=== PATIENT | female | born 1970 | race Caucasian/White ===

== ENCOUNTER 2019-05-04 12:04 | Inpatient (IN) ==
[2019-05-04] MEDS ORDERED: KETOROLAC TROMETHAMINE 15 MG/ML VIAL IV STA (13:03)
[2019-05-04] MEDS ORDERED: SODIUM CHLORIDE 0.9% 1000ML 1,000 ML IV ONE (13:03)
[2019-05-04 13:55] LABS: Basophils # (auto) 0.04 K/uL (0-0.2); Basophils % (auto) 0.5 %; Eosinophils # (auto) 0.18 K/uL (0-0.5); Eosinophils % (auto) 2.3 %; Hematocrit (blood only) 33.3 % (37-47); Immature Granulocytes # (auto) 0.02 K/uL (0.00-0.02); Immature Granulocytes % (auto) 0.3 %; Lymphocytes # (auto) 1.28 K/uL (1.2-3.4); Lymphocytes % (auto) 16.1 %; Mean Corpuscular Hemoglobin 40.1 pg (25-34); Mean Corpuscular Volume 111.4 fL (80-100); Mean Platelet Volume 10.9 fL (7.4-10.4); Monocytes # (auto) 0.86 K/uL (0.11-0.59); Monocytes % (auto) 10.8 %; Neutrophils # (auto) 5.59 K/uL (1.4-6.5); Platelet Count 381 K/uL (130-400); RDW Coefficient of Variation 14.4 % (11.5-14.5); RDW Standard Deviation 58.7 fL (36.4-46.3); Red Blood Count 2.99 M/uL (4.2-5.4); White Blood Count 7.97 K/uL (4.8-10.8)
[2019-05-04 14:12] LABS: Blood Urea Nitrogen 4 mg/dl (7-18); Carbon Dioxide 28 mmol/L (21-32); Chloride 102 mmol/L (98-107); Est GFR (African American) 144.8; Est GFR (Non-African American) 124.9; Sodium 138 mmol/L (136-145)
[2019-05-04 14:13] LABS: Alanine Aminotransferase 16 U/L (12-78); Albumin Level 2.8 gm/dl (3.4-5.0); Aspartate Aminotransferase 14 U/L (15-37); BUN Creatinine Ratio 9.5 (10-20); Bilirubin Direct < 0.1 mg/dl (0-0.2); Calcium 8.8 mg/dl (8.5-10.1); Glucose 91 mg/dl (70-99); Lipase 1160 U/L (73-393)
[2019-05-04 14:15] LABS: Alkaline Phosphatase 67 U/L (45-117); Bilirubin,Total 0.3 mg/dl (0.2-1); Macrocytosis Present; Total Protein 6.3 gm/dl (6.4-8.2)
[2019-05-04] MEDS ORDERED: MoRPHine SULFATE 4 MG/ML 1 ML CARP\\VIAL IV STA (14:46)
[2019-05-04] MEDS ORDERED: ONDANSETRON INJ 2 MG/ML 2 ML VIAL IV STA (14:46)
[2019-05-04] MEDS ORDERED: SODIUM CHLORIDE 0.9% 1000ML 1,000 ML IV SCH (15:00)
[2019-05-04 15:05] LABS: Appearance Urine Clear (Clear); Bacteria Urine Automated Negative (Negative); Bilirubin Urine Negative (Negative); Blood Urine Negative (Negative); Color Urine Yellow; Epithelial Cell Urine Auto >30 /lpf (0-5); Glucose Urine UA Negative (Negative); Ketones Urine 1+ (Negative); Leukocyte Esterase Urine 3+ (Negative); Nitrite Urine Negative (Negative); Protein Urine Negative (Negative); RBC Urine Automated 0-4 /hpf (0-4); Specific Gravity Urine 1.009 (1.000-1.030); Urobilinogen Urine Negative (Negative)
[2019-05-04] MEDS ORDERED: POTASSIUM CHLORIDE 20 MEQ TABCR PO STA (15:55)
[2019-05-04 15:57] LABS: Amphetamines+Metham, Urine Neg (Neg); Barbiturates, Urine Neg (Neg); Benzodiazepine, Urine Neg (Neg); Cocaine, Urine Neg (Neg); MDMA (Ecstacy), Urine Neg (Neg); Methadone, Urine Neg (Neg); Opiate, Urine Neg (Neg); Phencyclidine, Urine Neg (Neg)
--- NOTE | 2019-05-04 15:59 | History & Physical Report ---
Date of Service May 04, 2019 Assessment & Plan (1) Peripheral neuropathy: This is a 48-year-old female with a PMH of GERD, depression, anxiety, PTSD, tobacco use disorder, history of alcohol use disorder, marijuana use and other medical problems listed below who presents with ongoing bilateral lower extremity numbness and abdominal pain. -History of paresthesias in right toes back during Mansi time that is progressed up her legs to waist. Now also with tingling in bilateral hands and around mouth -Has been undergoing outpatient work-up for peripheral neuropathy and is already had an EMG but has not followed up with neurology as of yet, per [facility] discharge summary. Will need to clarify further with patient -TSH within normal range at 2.43 on 04/18/19 and B12 level was within normal range at 317 on 05/02/19. Folate level ordered for morning -No focal neurological deficits on exam. Both motor and sensory function intact bilaterally -Recommend alcohol cessation due to history of heavy use. Patient states last use was 04/13/19. Serum etoh negative -Endorses poor nutrition and eats a vegetarian and gluten free diet. Consult dietitian for recommendations -Fall precautions (2) Acute pancreatitis: Recently diagnosed with acute pancreatitis at [facility] on 04/29 -CT abd/pelvis from 04/29/19 with findings consistent with acute interstitial pancreatitis. No pancreatic necrosis or pseudocyst. No calcified gallstone, biliary duct dilatation or CT finding to suggest acute cholecystitis -RUQ ultrasound with heterogeneous pancreatic echotexture with indistinctness of the focal areas of pancreatic borders suggesting acute pancreatitis. Nonspecific small amount of pericholecystic fluid,no evidence for gallstone/sludge -IV LR @ 150, clear liquid diet, advance as tolerated -Recommendation was made for alcohol and marijuana cessation, but patient still using daily marijuana. Plan for outpatient EUS evaluation in 4 to 6 weeks - Repeat lipase tomorrow (3) GERD (gastroesophageal reflux disease): Continue PPI and H2 hanny (4) Tobacco use disorder: Recommend cessation -Offered nicotine patch but patient declined (5) Depression: Continue BuSpar (6) Post traumatic stress disorder (PTSD): Recently stopped taking Geodon because she did not like side effects -Continue Klonopin as needed, Ambien at bedtime DVT Ppx: SQ lovenox Code status: FULL PCP: [facility] ([facility] in [place]) Dispo: Obs med tele Patient seen in collaboration with Dr. Beltran. Please see addendum. History of Present Illness Chief Complaint: Bilateral lower extremity numbness and pain, abdominal pain Primary Care Provider: Kerry Moya MD This is a 48-year-old female with a PMH of GERD, depression, anxiety, PTSD, tobacco use disorder, history of alcohol use disorder, marijuana use and other medical problems listed below who presents with ongoing bilateral lower extremity numbness. States that she first noted some numbness and tingling in her right toes back during Mansi time that is progressed up her legs to waist. States that she feels weak but has been able to ambulate with some assistance. Feels like her lower limbs are heavy with intermittent shooting pain. Has been undergoing outpatient work-up for peripheral neuropathy and is already had an EMG but has not followed up with neurology as of yet, per chart review. Will need to clarify further with patient. TSH within normal range at 2.43 on 04/18/19 and B12 level was within normal range at 317 on 05/02/19. Endorses poor nutrition and eats a vegetarian and gluten free diet. Also presenting with mild left sided abdominal pain that has persisted since the beginning of the week, when patient was admitted to [facility] 04/29-05/02 for acute pancreatitis. Denies associated nausea or vomiting. History of significant alcohol use but states that last drink was at the beginning of April. CT abd/pelvis from 04/29/19 with findings consistent with acute interstitial pancreatitis. No pancreatic necrosis or pseudocyst. No calcified gallstone, biliary duct dilatation or CT finding to suggest acute cholecystitis. RUQ ultrasound with heterogeneous pancreatic echotexture with indistinctness of the focal areas of pancreatic borders suggesting acute pancreatitis. Nonspecific small amount of pericholecystic fluid with no evidence for gallstone/sludge. Recommendation was made for alcohol and marijuana cessation, but patient still using daily marijuana. Plan for EUS evaluation in 4 to 6 weeks. Smokes 1 pack/day for the past 20 years. Additional symptoms include intermittent flashes of light that is been going on for months. During [facility] hospitalization, outpatient evaluation with ophthalmology was recommended and patient has appointment scheduled for May 08. Also endorsing numbness of lips and chin since the beginning of April. Denies any difficulty speaking or swallowing. Denies any lightheadedness, diplopia, fever, chills, chest pain, palpitations, shortness of breath, nausea, vomiting, dysuria, diarrhea or constipation. Allergies Allergy/AdvReac Type Severity Reaction Status Date / Time No Known Allergies Allergy Unverified 05/04/19 13:57 Home Medications Home Medications Medication Instructions Recorded Confirmed Type buspirone 10 mg PO TID 05/04/19 05/04/19 History clonazepam [Klonopin] 0.5 mg PO QID PRN 05/04/19 05/04/19 History dicyclomine 10 mg PO DAILY 05/04/19 05/04/19 History famotidine [Pepcid] 40 mg PO DAILY 05/04/19 05/04/19 History fluticasone propionate 2 spray INTRANASAL DAILY 05/04/19 05/04/19 History gabapentin 300 mg PO TID 05/04/19 05/04/19 History melatonin [Melatin] 3 mg PO HS 05/04/19 05/04/19 History omeprazole 40 mg PO DAILY 05/04/19 05/04/19 History zolpidem [Ambien] 10 mg PO HS 05/04/19 05/04/19 History Past Med/Surg History Surgical History S/P removal of ovarian cyst Family History Other Diabetes Social History Feels Safe at Home: Yes Smoking Status: Current every day smoker packs per day: 1 ; Years Smoked: 20 ; Hx Alcohol Use: Yes (history of heavy use- reports last drink on 04/13/19 ) Hx Substance Use: Yes (endorses smoking marijuana daily ) substance use type: marijuana Review of Systems Review of Systems: At least ten systems reviewed and negative except as noted in the HPI. Physical Exam Physical Exam: General Appearance: WD/WN, vitals as above, NAD, sitting up in bed, pleasant, conversing easily Head: normocephalic, atraumatic Eyes: normal inspection, PERRL, conjunctivae normal, anicteric sclerae ENT: external ear and nose normal, oropharynx normal Neck: trachea midline, no thyromegaly, normal visual inspection Respiratory: lungs clear to auscultation, no wheeze, rales, rhonchi. Normal insp/exp effort, no accessory muscle use Cardiovascular: regular rate, rhythm, no murmur, normal peripheral pulses. Vessels: no JVD Chest: normal inspection of chest Abdomen/GI: normal bowel sounds, soft, TTP in LLQ, no guarding, no hepatosplenomegaly Extremities/Musculoskeletal: no cyanosis or clubbing, extremities motor strength 5/5, sensation intact bilaterally Neurologic: PERRL, EOMI, accommodation nl, no face palsy, no dysarthria, CN's II-XI intact bilaterally and moves all extremities Psychiatric: A+Ox3, + anxious Skin: no rashes, normal color, warm/dry Results & Data Vital Signs (Past 12 Hours) Vital Signs Temp Pulse Pulse Resp BP BP Pulse Ox 05/04/19 14:04 73 16 114/80 98 05/04/19 12:06 36.6 C 95 H 18 124/82 98 Supervising Physician Co-Signing Physician Notes 48-year-old female with a PMH of GERD, depression, anxiety, PTSD, tobacco use disorder, history of alcohol use disorder, marijuana use and other medical problems listed below who presents with ongoing bilateral lower extremity numbness. Was recently discharged from [facility] for acute pancreatitis and lower extremity numbness. History and physical exam performed by me Detailed history as noted by Ryanne Palencia PA-C History significant for bilateral lower extremity and hand numbness, lip numbness and upper abdominal pain, marijuana use, alcohol use Physical exam notable for upper abdominal tenderness, no focal deficits on neurologic exam both sensory and power assessment. Lipase is 1160 K 3 UDS positive for marijuana Acute pancreatitis Get Abd USS Review B12 from [facility]- 317 Planned for EMG and follow up with neurology Get A1c Counselled extensively on alcohol and marijuana use Reports poor diet. Get dietitian recs Replete K Continue IVF LR for now Can start clears and advance as tolerated Supposed to follow up with GI outpatient from [facility] discharge Other plans as above (1) Acute pancreatitis Acute pancreatitis complication: unspecified Pancreatitis type: unspecified pancreatitis type Qualified Code(s): K85.90 - Acute pancreatitis without necrosis or infection, unspecified
[2019-05-04] MEDS: LACTATED RINGER'S 1,000 ML IV SCH ×2 (16:24→22:55)
[2019-05-04] MEDS ORDERED: KETOROLAC TROMETHAMINE 15 MG/ML VIAL IV PRN (18:06)
[2019-05-04] MEDS ORDERED: OXYCODONE HCL IR 5 MG TAB (IMMEDIATE RELEASE) PO PRN (18:06)
--- NOTE | 2019-05-04 18:08 | Ultrasound Report ---
ULTRASOUND RIGHT UPPER QUADRANT ABDOMEN CLINICAL HISTORY: Pancreatitis. COMPARISON STUDY: No priors. TECHNIQUE: Real-time, grayscale, and color flow sonography of the right upper quadrant of the abdomen was performed. Images are reviewed in the transverse and longitudinal planes. FINDINGS: Liver: The liver is normal in size and echotexture. There is no intrahepatic biliary ductal dilatatio n. The main portal vein is patent. Gallbladder: There is minimal biliary sludge. The gallbladder is otherwise normal in appearance. No s hadowing gallstones are identified. There is no gallbladder wall thickening or pericholecystic fluid. A sonographic Gonzáles's sign is reportedly absent. The common bile duct measures up to 0.5 cm in diam eter. Pancreas: Visualized portions of the pancreatic head and body appear heterogeneous in echotexture. Th e splenic vein is patent. Right kidney: Survey images of the right kidney demonstrate normal size and echotexture. There is no hydronephrosis. Pleural space: There is a trace right pleural effusion. Ascites: None. IMPRESSION: 1. There is biliary sludge. No shadowing gallstones are identified. 2. The pancreas is heterogeneous in echotexture. 3. Trace right pleural effusion. ACT 112: Negative or not required by law. Electronically signed by: Jairo Ferguson M.D. 05/04/2019 6:06 PM
[2019-05-04] MEDS ORDERED: POLYETHYLENE (MIRALAX) 17 GM PACK PO PRN (18:41)
[2019-05-04] MEDS ORDERED: ONDANSETRON INJ 2 MG/ML 2 ML VIAL IV PRN (18:41)
--- NOTE | 2019-05-04 19:23 | Emergency Department Note ---
Entered by Aristides Carranza acting as a scribe for Blayne Molina History of Present Illness General Chief complaint: Leg Weakness, Bilateral Stated complaint: LEGS NUMB, CAN'T WALK Time Seen by Provider: 05/04/19 12:58 Source: patient History of Present Illness Onset (ago): month(s) 1 Location: lower extremity, left and right Pain Consistency: + constant Maximum Pain Intensity: 10 Quality: + other (numbness) Associated symptoms: + denies other symptoms (difficulty urinating, blood in her urine, the chance of , and urinating herself) and + other (numbness to her lips and mouth, abdominal pain) The patient is a 48 y/o female who presents to the ED w/ CC of constant numbness to her bilateral legs beginning a month ago. She reports her symptoms started on 04/02 when she had three numb toes. The patient states she was discharged from [facility] two days ago for similar symptoms. She reports since then her numbness has worsened, and it is very difficulty to walk. The patient notes she is also having extreme pain. She states she went to her PCP today and was told her B12 lab result was wnl. The patient reports she did not complete her scheduled EGD yesterday because she is waiting to hear back from Dr. Juarez, Neurology. She notes her lips and chin are numb as well as her hands. The patient states she also has abdominal pain. Abdominal pain is located in the epigastric area and radiates to her mid back. The patient states she has not been drinking alcohol since discharge. She denies difficulty urinating, blood in her urine, melena, hematochezia, the chance of , and urinating herself. Home Medications Home Medications Medication Instructions Recorded Confirmed Type buspirone 10 mg PO TID 05/04/19 05/04/19 History clonazepam [Klonopin] 0.5 mg PO QID PRN 05/04/19 05/04/19 History dicyclomine 10 mg PO DAILY 05/04/19 05/04/19 History famotidine [Pepcid] 40 mg PO DAILY 05/04/19 05/04/19 History fluticasone propionate 2 spray INTRANASAL DAILY 05/04/19 05/04/19 History gabapentin 300 mg PO TID 05/04/19 05/04/19 History melatonin [Melatin] 3 mg PO HS 05/04/19 05/04/19 History omeprazole 40 mg PO DAILY 05/04/19 05/04/19 History zolpidem [Ambien] 10 mg PO HS 05/04/19 05/04/19 History Allergies Allergy/AdvReac Type Severity Reaction Status Date / Time No Known Allergies Allergy Unverified 05/04/19 13:57 Past Med/Surg History Surgical History S/P removal of ovarian cyst Family History Other Diabetes Social History Feels Safe at Home: Yes Smoking Status: Current every day smoker packs per day: 1 ; Years Smoked: 20 ; Hx Alcohol Use: Yes (history of heavy use- reports last drink on 04/13/19 ) Hx Substance Use: Yes (endorses smoking marijuana daily ) substance use type: marijuana Review of Systems See HPI for pertinent positives & negatives. and A total of 10 systems reviewed and were otherwise negative Physical Exam Vital Signs Vital Signs - 24 hr 05/04/19 12:06 05/04/19 14:04 05/04/19 16:18 Temperature 36.6 C Temperature Source Oral Pulse Rate 95 H Pulse Rate [Finger] 73 77 Respiratory Rate 18 16 16 Respiratory Effort / Characteristics Non-Labored Non-Labored Spontaneous Non-Labored Spontaneous Respiratory Depth Normal Normal Normal Respiratory Pattern Regular Regular Blood Pressure 124/82 Blood Pressure [Right Arm] 114/80 126/89 Blood Pressure Mean 96 Blood Pressure Mean [Right Arm] 91 101 Blood Pressure Position Sitting Blood Pressure Position [Right Arm] Sitting Lying Pulse Oximetry 98 98 97 Oxygen Delivery Method Room Air Room Air Room Air Sepsis Recent Fever Within 48 Hours No Sepsis Action Taken by Nursing No Action Required GENERAL: She is oriented to person, place, and time. She appears well-developed and well-nourished. She does not appear distressed. HENT: Exam performed. Head: Normocephalic and atraumatic. Right Ear: External ear normal. No mastoid tenderness. Left Ear: External ear normal. No mastoid tenderness. Mouth/Throat: The oropharynx is clear and moist. No trismus in the jaw. No dental abscesses or uvula swelling. No oropharyngeal exudate or tonsillar abscesses. EYES: Conjunctivae and EOM are normal. Pupils are equal, round, and reactive to light. Right eye exhibits no discharge. Left eye exhibits no discharge. No scleral icterus. NECK: Normal range of motion. Neck supple. No JVD present. No spinous process tenderness present. No carotid bruit present. No rigidity. No tracheal deviation and normal range of motion present. No Brudzinski's sign and no Kernig's sign noted. CV: Normal rate, regular rhythm, normal heart sounds and intact distal pulses. There is no peripheral edema. Palpable radial pulses bue. PULM/CHEST: Effort normal and breath sounds normal. No respiratory distress. No stridor. She has no wheezes. She has no rales. Chest Wall: She exhibits no tenderness. ABD: The abdomen is soft. Bowel sounds are normal. She has no distension. No mass is present. There is tenderness to the epigastric area. There is no rebound, no guarding, no Gonzáles's sign and no tenderness at McBurney's point. Rovsig negative MUSC/SKEL: Normal range of motion. There is no peripheral edema, tenderness or deformity. No C, T, or L-spine tenderness. LYMPH: No cervical adenopathy. NEURO: She is alert and oriented to person, place, and time. She has normal strength. No cranial nerve deficit or sensory deficit. Coordination and gait normal. GCS eye subscore is 4. GCS verbal subscore is 5. GCS motor subscore is 6. cerbellar tests wnl. No saddle anesthesia or paresthesias. SKIN: Skin is warm and dry. She is not diaphoretic. PSYCH: She has a bizarre mood and affect. Her behavior is normal. Judgment and thought content normal. Course Course 1307: The patient was evaluated in room A11A. A complete history and physical exam was performed. The patient's EMR was accessed by [facility] Case management. The patient was admitted to [facility] from 04/29/19 to 05/02/19 for pancreatitis, depression, and PTSD. According to the H&P, the patient had bilateral lower extremity swelling for two months and has been worked up for peripheral neuropathy. She was supposed to follow-up with neurology. The patient had a RUQ ultrasound that was negative and a lipase greater than 3000 on May 01. She has a history of alcohol abuse. Her lipase was 116 at the time of discharge. The patient was scheduled to have a EMG done yesterday however the patient did not appear for the appointment. 1445: Vital signs stable. Labs are positive for an elevated lipase, 1160. Potassium is also 3.0. It appears that the patient is suffering from acute pancreatitis. I reviewed the patient's case with TIFFANIE Diaz, [facility], attending Dr. Roberts. She will evaluate the patient for further management. Patient be continued given analgesia in the emergency department as well as IV hydration. Administered Medications Lactated Ringer's (Lr) 1,000 mls @ 150 mls/hr IV .Q6H40M [facility] Stop: 06/03/19 15:59 Last Admin: 05/04/19 16:24 Dose: 150 mls/hr Documented by: [id number] Oxycodone HCl (Roxicodone Immediate Rel) 5 mg PO Q8H PRN PRN Reason: Pain Stop: 05/18/19 18:05 Last Admin: 05/04/19 19:17 Dose: 5 mg Documented by: [id number] Discontinued Medications Sodium Chloride (Nss 1000ml) 1,000 mls @ 999 mls/hr IV .Q1H1M ONE Stop: 05/04/19 14:03 Last Infusion: 05/04/19 14:50 Dose: 0 mls/hr Documented by: [id number] Admin: 05/04/19 13:45 Dose: 999 mls/hr Documented by: [id number] Sodium Chloride (Nss 1000ml) 1,000 mls @ 125 mls/hr IV .Q8H [facility] Stop: 06/03/19 14:59 Last Infusion: 05/04/19 16:24 Dose: 0 mls/hr Documented by: [id number] Admin: 05/04/19 15:22 Dose: 125 mls/hr Documented by: [id number] Ketorolac Tromethamine (Toradol) 15 mg IV NOW STA Stop: 05/04/19 13:04 Last Admin: 05/04/19 13:48 Dose: 15 mg Documented by: [id number] Morphine Sulfate (Morphine Sulfate) 4 mg IV NOW STA Stop: 01/24/20 14:47 Last Admin: 05/04/19 15:22 Dose: 4 mg Documented by: [id number] Ondansetron HCl (Zofran) 4 mg IV NOW STA Stop: 05/04/19 14:47 Last Admin: 05/04/19 15:22 Dose: 4 mg Documented by: [id number] Potassium Chloride (Klor-Con M20) 40 meq PO NOW STA Stop: 05/04/19 15:56 Last Admin: 05/04/19 16:24 Dose: 40 meq Documented by: [id number] Medical Decision Making Medical Records Attestation: I reviewed the patient's medical records. Home Medications Current Medication List: was personally reviewed by me Laboratory Data Attestation: I reviewed the patient's lab results. Result diagrams: 05/04/19 13:45 05/04/19 13:45 Lab Results 05/04/19 05/04/19 05/04/19 Range/Units 13:45 13:45 14:40 WBC 7.97 (4.8-10.8) K/uL RBC 2.99 L (4.2-5.4) M/uL Hgb 12.0 (12.0-16.0) g/dL Hct 33.3 L (37-47) % MCV 111.4 H (80-100) fL MCH 40.1 H (25-34) pg MCHC 36.0 (32-36) g/dL RDW Std Deviation 58.7 H (36.4-46.3) fL RDW Coeff of Jane 14.4 (11.5-14.5) % Plt Count 381 (130-400) K/uL MPV 10.9 H (7.4-10.4) fL Immature Gran % (Auto) 0.3 % Neut % (Auto) 70.0 % Lymph % (Auto) 16.1 % Ward % (Auto) 10.8 % Eos % (Auto) 2.3 % Baso % (Auto) 0.5 % Immature Gran # (Auto) 0.02 (0.00-0.02) K/uL Neut # (Auto) 5.59 (1.4-6.5) K/uL Lymph # (Auto) 1.28 (1.2-3.4) K/uL Ward # (Auto) 0.86 H (0.11-0.59) K/uL Eos # (Auto) 0.18 (0-0.5) K/uL Baso # (Auto) 0.04 (0-0.2) K/uL Macrocytosis Present Sodium 138 (136-145) mmol/L Potassium 3.0 L (3.5-5.1) mmol/L Chloride 102 (98-107) mmol/L Carbon Dioxide 28 (21-32) mmol/L Anion Gap 8.0 (3-11) BUN 4 L (7-18) mg/dl Creatinine 0.40 L (0.6-1.2) mg/dl Est Cr Clr Drug Dosing Not Reportable Est GFR ( Amer) 144.8 Est GFR (Non-Af Amer) 124.9 BUN/Creatinine Ratio 9.5 L (10-20) Glucose 91 (70-99) mg/dl Calcium 8.8 (8.5-10.1) mg/dl Total Bilirubin 0.3 (0.2-1) mg/dl Direct Bilirubin < 0.1 (0-0.2) mg/dl AST 14 L (15-37) U/L ALT 16 (12-78) U/L Alkaline Phosphatase 67 (45-117) U/L Total Protein 6.3 L (6.4-8.2) gm/dl Albumin 2.8 L (3.4-5.0) gm/dl Lipase 1160 H (73-393) U/L Folate Urine Color Yellow Urine Appearance Clear (Clear) Urine pH 8.0 H (4.5-7.5) Ur Specific [place] 1.009 (1.000-1.030) Urine Protein Negative (Negative) Urine Glucose (UA) Negative (Negative) Urine Ketones 1+ H (Negative) Urine Blood Negative (Negative) Urine Nitrite Negative (Negative) Urine Bilirubin Negative (Negative) Urine Urobilinogen Negative (Negative) Ur Leukocyte Esterase 3+ H (Negative) Urine WBC (Auto) 10-30 H (0-5) /hpf Urine RBC (Auto) 0-4 (0-4) /hpf U Hyaline Cast (Auto) 1-5 (0-5) /lpf U Epithel Cells (Auto) >30 H (0-5) /lpf Urine Bacteria (Auto) Negative (Negative) POC Ur Test (NEG) Urine Opiates Screen (Neg) Ur Methadone, Qual (Neg) Urine Barbiturates (Neg) Ur Phencyclidine (PCP) (Neg) U Amphetamin/Meth Scrn (Neg) MDMA (Ecstasy) Screen (Neg) U Benzodiazepines Scrn (Neg) Ur Cocaine Metabolite (Neg) U Marijuana (THC) Screen (Neg) Ethyl Alcohol mg/dL (0-3) mg/dl 05/04/19 05/04/19 05/04/19 Range/Units 14:40 14:40 15:05 WBC (4.8-10.8) K/uL RBC (4.2-5.4) M/uL Hgb (12.0-16.0) g/dL Hct (37-47) % MCV (80-100) fL MCH (25-34) pg MCHC (32-36) g/dL RDW Std Deviation (36.4-46.3) fL RDW Coeff of Jane (11.5-14.5) % Plt Count (130-400) K/uL MPV (7.4-10.4) fL Immature Gran % (Auto) % Neut % (Auto) % Lymph % (Auto) % Ward % (Auto) % Eos % (Auto) % Baso % (Auto) % Immature Gran # (Auto) (0.00-0.02) K/uL Neut # (Auto) (1.4-6.5) K/uL Lymph # (Auto) (1.2-3.4) K/uL Ward # (Auto) (0.11-0.59) K/uL Eos # (Auto) (0-0.5) K/uL Baso # (Auto) (0-0.2) K/uL Macrocytosis Sodium (136-145) mmol/L Potassium (3.5-5.1) mmol/L Chloride (98-107) mmol/L Carbon Dioxide (21-32) mmol/L Anion Gap (3-11) BUN (7-18) mg/dl Creatinine (0.6-1.2) mg/dl Est Cr Clr Drug Dosing Est GFR ( Amer) Est GFR (Non-Af Amer) BUN/Creatinine Ratio (10-20) Glucose (70-99) mg/dl Calcium (8.5-10.1) mg/dl Total Bilirubin (0.2-1) mg/dl Direct Bilirubin (0-0.2) mg/dl AST (15-37) U/L ALT (12-78) U/L Alkaline Phosphatase (45-117) U/L Total Protein (6.4-8.2) gm/dl Albumin (3.4-5.0) gm/dl Lipase (73-393) U/L Folate Urine Color Urine Appearance (Clear) Urine pH (4.5-7.5) Ur Specific Salem (1.000-1.030) Urine Protein (Negative) Urine Glucose (UA) (Negative) Urine Ketones (Negative) Urine Blood (Negative) Urine Nitrite (Negative) Urine Bilirubin (Negative) Urine Urobilinogen (Negative) Ur Leukocyte Esterase (Negative) Urine WBC (Auto) (0-5) /hpf Urine RBC (Auto) (0-4) /hpf U Hyaline Cast (Auto) (0-5) /lpf U Epithel Cells (Auto) (0-5) /lpf Urine Bacteria (Auto) (Negative) POC Ur Test NEG (NEG) Urine Opiates Screen Neg (Neg) Ur Methadone, Qual Neg (Neg) Urine Barbiturates Neg (Neg) Ur Phencyclidine (PCP) Neg (Neg) U Amphetamin/Meth Scrn Neg (Neg) MDMA (Ecstasy) Screen Neg (Neg) U Benzodiazepines Scrn Neg (Neg) Ur Cocaine Metabolite Neg (Neg) U Marijuana (THC) Screen Pos H (Neg) Ethyl Alcohol mg/dL < 3.0 (0-3) mg/dl 05/04/19 Range/Units 16:07 WBC (4.8-10.8) K/uL RBC (4.2-5.4) M/uL Hgb (12.0-16.0) g/dL Hct (37-47) % MCV (80-100) fL MCH (25-34) pg MCHC (32-36) g/dL RDW Std Deviation (36.4-46.3) fL RDW Coeff of Jane (11.5-14.5) % Plt Count (130-400) K/uL MPV (7.4-10.4) fL Immature Gran % (Auto) % Neut % (Auto) % Lymph % (Auto) % Ward % (Auto) % Eos % (Auto) % Baso % (Auto) % Immature Gran # (Auto) (0.00-0.02) K/uL Neut # (Auto) (1.4-6.5) K/uL Lymph # (Auto) (1.2-3.4) K/uL Ward # (Auto) (0.11-0.59) K/uL Eos # (Auto) (0-0.5) K/uL Baso # (Auto) (0-0.2) K/uL Macrocytosis Sodium (136-145) mmol/L Potassium (3.5-5.1) mmol/L Chloride (98-107) mmol/L Carbon Dioxide (21-32) mmol/L Anion Gap (3-11) BUN (7-18) mg/dl Creatinine (0.6-1.2) mg/dl Est Cr Clr Drug Dosing Est GFR ( Amer) Est GFR (Non-Af Amer) BUN/Creatinine Ratio (10-20) Glucose (70-99) mg/dl Calcium (8.5-10.1) mg/dl Total Bilirubin (0.2-1) mg/dl Direct Bilirubin (0-0.2) mg/dl AST (15-37) U/L ALT (12-78) U/L Alkaline Phosphatase (45-117) U/L Total Protein (6.4-8.2) gm/dl Albumin (3.4-5.0) gm/dl Lipase (73-393) U/L Folate Cancelled Urine Color Urine Appearance (Clear) Urine pH (4.5-7.5) Ur Specific [place] (1.000-1.030) Urine Protein (Negative) Urine Glucose (UA) (Negative) Urine Ketones (Negative) Urine Blood (Negative) Urine Nitrite (Negative) Urine Bilirubin (Negative) Urine Urobilinogen (Negative) Ur Leukocyte Esterase (Negative) Urine WBC (Auto) (0-5) /hpf Urine RBC (Auto) (0-4) /hpf U Hyaline Cast (Auto) (0-5) /lpf U Epithel Cells (Auto) (0-5) /lpf Urine Bacteria (Auto) (Negative) POC Ur Test (NEG) Urine Opiates Screen (Neg) Ur Methadone, Qual (Neg) Urine Barbiturates (Neg) Ur Phencyclidine (PCP) (Neg) U Amphetamin/Meth Scrn (Neg) MDMA (Ecstasy) Screen (Neg) U Benzodiazepines Scrn (Neg) Ur Cocaine Metabolite (Neg) U Marijuana (THC) Screen (Neg) Ethyl Alcohol mg/dL (0-3) mg/dl Blood Pressure Blood Pressure Findings: Normal blood pressure Blood Pressure Disposition: did not require urgent referral [facility] Narrative 1307: The patient was evaluated in room A11A. A complete history and physical exam was performed. The patient's EMR was accessed by [facility] Case management. The patient was admitted to [facility] from 04/29/19 to 05/02/19 for pancreatitis, depression, and PTSD. According to the H&P, the patient had bilateral lower extremity swelling for two months and has been worked up for peripheral neuropathy. She was supposed to follow-up with neurology. The patient had a RUQ ultrasound that was negative and a lipase greater than 3000 on May 01. She has a history of alcohol abuse. Her lipase was 116 at the time of discharge. The patient was scheduled to have a EMG done yesterday however the p atient did not appear for the appointment. 1445: Vital signs stable. Labs are positive for an elevated lipase, 1160. Potassium is also 3.0. It appears that the patient is suffering from acute panc reatitis. I reviewed the patient's case with TIFFANIE Diaz, [facility] Hospitalist, attending Dr. Roberts. She will evaluate the patient for further management. Patient be continued given analgesia in the emergency department as well as IV hydration. Impression & Plan Acute pancreatitis Discharge Plan Visit Data *Final* Discharge Date/Time: 05/04/19 18:14 Chief Complaint: Leg Weakness, Bilateral Stated Complaint: LEGS NUMB, CAN'T WALK ED Provider: Blayne Molina Discharge Problem: Acute pancreatitis Patient Disposition: Admitted As Inpatient Discharge Instructions Interventions: ED Discharge Assessment Last Done: 05/04/19 18:14 Discharge Problem: Acute pancreatitis Qualifiers: Pancreatitis type: unspecified pancreatitis type Acute pancreatitis complication: unspecified Qualified Code(s): K85.90 - Acute pancreatitis without necrosis or infection, unspecified The scribe's documentation has been prepared under my direction and personally reviewed by me in its entirety. I confirm that the note above accurately reflects all work, treatment, procedures, and medical decision making performed by me.
[2019-05-04] MEDS: clonazePAM 0.5 MG TAB PO PRN (21:56)
[2019-05-04] MEDS: HYDROmorphone INJ 0.5 MG/0.5 ML SYR IV PRN (22:01)
[2019-05-04] MEDS: ZOLPIDEM TARTRATE 10 MG TAB PO SCH (22:56)
[2019-05-05] MEDS: HYDROmorphone INJ 0.5 MG/0.5 ML SYR IV PRN ×6 (02:00→23:45)
[2019-05-05] MEDS: LACTATED RINGER'S 1,000 ML IV SCH ×3 (06:12→20:00)
[2019-05-05 06:43] LABS: Hematocrit (blood only) 29.5 % (37-47); Hemoglobin 10.3 g/dL (12.0-16.0); Mean Corpuscular Hemoglobin 39.2 pg (25-34); Mean Corpuscular Hgb Conc 34.9 g/dL (32-36); Mean Corpuscular Volume 112.2 fL (80-100); Mean Platelet Volume 10.4 fL (7.4-10.4); Platelet Count 319 K/uL (130-400); RDW Coefficient of Variation 14.5 % (11.5-14.5); RDW Standard Deviation 58.8 fL (36.4-46.3); Red Blood Count 2.63 M/uL (4.2-5.4); White Blood Count 6.84 K/uL (4.8-10.8)
[2019-05-05 07:24] LABS: Blood Urea Nitrogen 2 mg/dl (7-18); Calcium 7.9 mg/dl (8.5-10.1); Carbon Dioxide 27 mmol/L (21-32); Chloride 104 mmol/L (98-107); Creatinine Clr Calc Pharmacy 244.9 ml/min; Est GFR (African American) > 150.0; Est GFR (Non-African American) 137.3; Glucose 80 mg/dl (70-99); Lipase 849 U/L (73-393); Sodium 138 mmol/L (136-145)
[2019-05-05 08:04] LABS: Estimated Average Glucose 80 mg/dl; Hemoglobin A1C 4.4 % (4.5-5.6)
[2019-05-05] MEDS: clonazePAM 0.5 MG TAB PO PRN ×3 (08:36→21:24)
[2019-05-05] MEDS: PANTOprazole 40 MG TAB PO SCH (08:36)
[2019-05-05] MEDS: DICYCLOMINE HCL 10 MG CAP PO SCH (08:37)
[2019-05-05] MEDS: FAMOTIDINE 40 MG TABLET PO SCH (08:37)
[2019-05-05] MEDS: ENOXAPARIN INJ 40 MG/0.4 ML SYR SQ SCH (08:38)
[2019-05-05] MEDS: FLUTICASONE PROPIONATE NA SPR 16 GM BTL NAE SCH (08:38)
--- NOTE | 2019-05-05 16:50 | Hospitalist Progress Note ---
Date of Service May 05, 2019 Assessment & Plan (1) Acute pancreatitis: Had recent imaging at [facility]. Outpatient EUS recommended. Now with recurrence. Patient states that last drink was > 2 weeks ago. Gallbladder US now shows sludge. Continue IV fluids. Analgesics / anti-emetics PRN. Advance diet as tolerated. (2) GERD (gastroesophageal reflux disease): Continue PPI. (3) Lower extremity weakness: Lower extremity weakness and paresthesiae- consider spinal cord pathology, neuropathy. Also has neck pain and upper extremity weakness. Was advised to get imaging of spine YINKA. Check MRI cervical / thoracic / lumbar spine. (4) Hypokalemia: K 3.0. Replace, follow. Check Mg. (5) History of alcohol use: Pt reports heavy consumption of alcohol in past, none since 04/13/19. Monitor for withdrawal symptoms. Thiamine, MVI. (6) Macrocytosis: MCV 112. LFT's OK despite history of alcoholism. Check B12, folate, TSH. (7) DVT prophylaxis: SQ enoxaparin. Ambulate. (8) Discharge planning issues: Discharge disposition to be determined. Medical follow-up with Dr. Moya in [place]. Subjective Recheck for multiple problems. Patient seen in their room around . Admitted yesterday with pancreatitis and weakness of upper and lower extremities. Abdominal pain improved. No N/V. Having loose stools. No melena or hematochezia. Ongoing weakness / paresthesiae of bilat lower extremities and weakness of both upper extremities. Has chronic neck pain. Sounds like she had recent EMG/NCV and was told to get imaging of her spine YINKA. Pt states that her last alcohol consumption was 04/13/19. Review of Systems: Constitutional- no fever. Cardiac- no chest pain. Pulmonary- no cough or SOB. GI- as noted above. - no urinary symptoms. Otherwise, as noted above. Physical Exam Constitutional: no acute distress Eyes: + anicteric sclerae Respiratory: no respiratory distress Auscultation: lungs clear to auscultation bilaterally Cardiovascular: Rate/Rhythm: regular rate and regular rhythm Heart Sounds: + gallop Vessels: no JVD Extremities: no calf tenderness and no edema Gastrointestinal (Abdomen): Inspection/Auscultation: normal bowel sounds; abdomen not distended Percussion/Palpation: + abdomen tender (mild epigastric ) and abdomen soft Musculoskeletal: Extremities: no cyanosis Skin: no rashes, warm and dry Neurologic: upper extremity strength 4.5/5 proximally and distally lower extremity strength 4.5/5 proximally and distally patellar reflexes 1/2 bilat plantar reflexes downgoing Psychiatric: Orientation: alert and oriented x 3 Results & Data Vital Signs (Past 12 Hours) Vital Signs Temp Pulse Pulse Pulse Resp BP Pulse Ox 05/05/19 15:13 36.9 C 79 18 118/84 98 05/05/19 12:38 36.7 C 87 18 128/87 96 05/05/19 07:25 88 05/05/19 07:24 37 C 78 20 129/85 91 Laboratory Results Laboratory Results - last 24 hr 05/05/19 05/05/19 05/05/19 06:30 06:30 06:30 WBC 6.84 RBC 2.63 L Hgb 10.3 L Hct 29.5 L MCV 112.2 H MCH 39.2 H MCHC 34.9 RDW Std Deviation 58.8 H RDW Coeff of Jane 14.5 Plt Count 319 MPV 10.4 Sodium 138 Potassium 3.0 L Chloride 104 Carbon Dioxide 27 Anion Gap 7.0 BUN 2 L Creatinine 0.30 L Est Cr Clr Drug Dosing 244.9 Est GFR ( Amer) > 150.0 Est GFR (Non-Af Amer) 137.3 BUN/Creatinine Ratio 7.0 L Glucose 80 Estimat Average Glucose Hemoglobin A1c Calcium 7.9 L Lipase 849 H Folate 2.05 L 05/05/19 06:30 WBC RBC Hgb Hct MCV MCH MCHC RDW Std Deviation RDW Coeff of Jane Plt Count MPV Sodium Potassium Chloride Carbon Dioxide Anion Gap BUN Creatinine Est Cr Clr Drug Dosing Est GFR ( Amer) Est GFR (Non-Af Amer) BUN/Creatinine Ratio Glucose Estimat Average Glucose 80 Hemoglobin A1c 4.4 L Calcium Lipase Folate (1) Acute pancreatitis Acute pancreatitis complication: unspecified Pancreatitis type: unspecified pancreatitis type Qualified Code(s): K85.90 - Acute pancreatitis without necrosis or infection, unspecified
[2019-05-05 21:41] LABS: Cdiff Antigen Positive; Cdiff Toxin A+B Negative Cdiff Toxin (Negative)
[2019-05-05] MEDS: ZOLPIDEM TARTRATE 10 MG TAB PO SCH (23:16)
[2019-05-06] MEDS: LACTATED RINGER'S 1,000 ML IV SCH ×2 (02:30→08:16)
[2019-05-06] MEDS: HYDROmorphone INJ 0.5 MG/0.5 ML SYR IV PRN ×3 (03:51→12:23)
[2019-05-06] MEDS: clonazePAM 0.5 MG TAB PO PRN ×3 (03:52→23:32)
[2019-05-06] MEDS: RASPBERRY SYRUP 5 ML UDP PO SCH ×4 (06:12→23:32)
[2019-05-06] MEDS: VANCOMYCIN HCL 125 MG/2.5ML SOLN PO SCH ×4 (06:13→23:32)
[2019-05-06 06:23] LABS: Hematocrit (blood only) 31.1 % (37-47); Hemoglobin 10.9 g/dL (12.0-16.0); Mean Corpuscular Hemoglobin 39.6 pg (25-34); Mean Corpuscular Volume 113.1 fL (80-100); Mean Platelet Volume 10.5 fL (7.4-10.4); Platelet Count 364 K/uL (130-400); RDW Coefficient of Variation 14.4 % (11.5-14.5); RDW Standard Deviation 59.4 fL (36.4-46.3); Red Blood Count 2.75 M/uL (4.2-5.4); White Blood Count 6.29 K/uL (4.8-10.8)
[2019-05-06 06:56] LABS: BUN Creatinine Ratio 4.5 (10-20); Blood Urea Nitrogen 1 mg/dl (7-18); Calcium 8.6 mg/dl (8.5-10.1); Carbon Dioxide 28 mmol/L (21-32); Chloride 105 mmol/L (98-107); Creatinine Clr Calc Pharmacy 229.6 ml/min; Est GFR (African American) > 150.0; Est GFR (Non-African American) 134.4; Glucose 84 mg/dl (70-99); Lipase 740 U/L (73-393); Magnesium 1.4 mg/dl (1.8-2.4); Potassium 3.2 mmol/L (3.5-5.1); Sodium 138 mmol/L (136-145)
[2019-05-06] MEDS ORDERED: LORazepam 0.5 MG/1 ML VIAL IV ONE (08:00)
[2019-05-06] MEDS: DICYCLOMINE HCL 10 MG CAP PO SCH (08:16)
[2019-05-06] MEDS: ENOXAPARIN INJ 40 MG/0.4 ML SYR SQ SCH (08:16)
[2019-05-06] MEDS: FAMOTIDINE 40 MG TABLET PO SCH (08:16)
[2019-05-06] MEDS: PANTOprazole 40 MG TAB PO SCH (08:16)
[2019-05-06] MEDS: FLUTICASONE PROPIONATE NA SPR 16 GM BTL NAE SCH (08:18)
--- NOTE | 2019-05-06 11:26 | Magnetic Resonance Report ---
MR lumbar spine wo con CLINICAL HISTORY: 48 years-old Female with weakness and paresthesiae lower extremities. Subacute num bness and tingling of the right lower extremity for several months. COMPARISON: MRI thoracic and cervical spine studies of same day TECHNIQUE: Multiplanar, multi sequence MRI of the lumbar spine was performed without intravenous cont rast. FINDINGS: Large [id number] endoscopy localizer images demonstrate no gross extraspinal abnormality. There is mil d levoscoliosis of the lumbar spine of less than 10 degrees. Nonspecific superficial subcutaneous yon ma/fluid extension T12-L5. Minimal likely degenerative endplate edema at L5-S1 suggestive of Modic ty pe I degeneration. Minimal edema of the left L4 and L5 pedicles is suggestive of associated stress re sponse. Mild edema also surrounds the left L4-L5 facet. No acute fracture or subluxation. Disc desicc ation is noted at L4-L5 and L5-S1. Conus medullaris terminates at the L1 level. Signal within the jaspreet ged thoracic spinal cord appears normal. T12-L1: No central canal or neural foraminal stenosis. L1-L2: Mild facet arthrosis. No central canal or neural foraminal stenosis. L2-L3: Mild facet arthrosis. No central canal or neural foraminal stenosis. L3-L4: Mild facet arthrosis. No central canal or neural foraminal stenosis. L4-L5: Mild disc space narrowing with disc desiccation and small circumferential annular disc bulge. Small annular fissure of the right foraminal distribution (image 7 series 4). Additionally, there is mild ligamentum flavum thickening with moderate facet arthrosis and trace left facet effusion. Marva ening of the ventral thecal sac without significant central canal stenosis. Mild narrowing of the rig ht lateral recess with mild inferior right foraminal stenosis. L5-S1: Mild disc space narrowing with spondylitic spurring, disc desiccation and small circumferenti al annular disc bulge. Ligamentum flavum thickening with mild facet arthrosis and trace facet effusio ns. Flattening of the ventral thecal sac with mild inferior right foraminal narrowing. The central ca nal and left foramen are patent. IMPRESSION: 1. No acute fracture or subluxation. 2. Discogenic degeneration and facet arthrosis at L4-L5 and L5-S1 as above. 3. Mild bone marrow edema involving the left L4 and L5 pedicles suggests stress response. Mild soft t issue edema surrounding the left L4-L5 facet is likely reactive secondary to associated degeneration. 4. No high-grade central canal or foraminal narrowing. ACT 112: Negative or not required by law. The above report was generated using voice recognition software. It may contain grammatical, syntax o r spelling errors. Electronically signed by: Trav Butterfield M.D. 05/06/2019 11:25 AM
[2019-05-06] MEDS: MAGNESIUM CHLORIDE 64MG DELAYED REL TAB PO SCH ×2 (11:37→22:26)
[2019-05-06] MEDS: POTASSIUM CHLORIDE 10 MEQ TABCR PO SCH ×3 (11:37→20:36)
[2019-05-06] MEDS: POTASSIUM CHLORIDE 20 MEQ, MAGNESIUM SULFATE 50% 1 GM in D5W AND 1/2NSS 1,000 ML IV SCH ×2 (11:37→21:48)
--- NOTE | 2019-05-06 11:43 | Magnetic Resonance Report ---
MR thoracic spine wo con HISTORY: 48 years-old Female weakness and paresthesiae lower extremities subacute numbness and tingl ing of the right lower extremity COMPARISON: MRI the lumbar spine of same day TECHNIQUE: Multiplanar multisequence MRI of the thoracic spine was obtained without the use of IV con trast. FINDINGS: The large [id number] plastering contractor localizer images demonstrate no gross extraspinal abnormality. Trace la yering bilateral pleural effusions, left greater than right. Levoscoliosis of the midthoracic spine o f approximately 21 degrees. No acute fracture, subluxation or bone marrow edema. Signal within the th oracic spinal cord appears normal. Conus medullaris terminates at L1. No significant disc space narro wing. Mild facet arthrosis with minimal spondylitic spurring. There is no significant central canal o r foraminal narrowing. There is mild left-sided foraminal narrowing at T1-T2 and T2-T3 with associate d spondylitic spurring and facet arthrosis. Tiny posterior annular disc bulge at T9-T10. IMPRESSION: 1. Levoscoliosis of the midthoracic spine. No acute fracture, subluxation, significant central canal or foraminal narrowing. 2. Incidental note is made of trace pleural effusions. ACT 112: Negative or not required by law. The above report was generated using voice recognition software. It may contain grammatical, syntax o r spelling errors. Electronically signed by: Trav Butterfield M.D. 05/06/2019 11:41 AM
--- NOTE | 2019-05-06 12:04 | Magnetic Resonance Report ---
MR cervical spine wo con HISTORY: 48 years-old Female neck pain, weakness of upper and lower extremities subacute neck pain w ith upper and lower extremity weakness COMPARISON: MRI thoracic and lumbar spine studies of same day TECHNIQUE: Multiplanar multisequence MRI of the cervical spine was obtained without the use of IV con trast. FINDINGS: Telemedicine Physician localizer images demonstrate no gross extracranial abnormality. Convex right curvature of the m id cervical spine with partially imaged convex left curvature of the thoracic spine. The imaged poste rior fossa structures appear unremarkable. No cerebellar tonsillar herniation. No acute fracture or s ubluxation of the cervical spine. Signal within the brainstem and cervical spinal cord appear normal. No cord lesions identified. Modic type II endplate degeneration noted at C5-C6 and C6-C7. C2-C3: Mild facet arthrosis. No central canal or foraminal narrowing. C3-C4: Mild facet arthrosis. No central canal or foraminal narrowing. C4-C5: Mild uncovertebral spurring with mild facet arthrosis and tiny posterior annular disc bulge. N o central canal or foraminal narrowing. C5-C6: Mild to moderate disc space narrowing with spondylitic spurring, circumferential annular disc bulge and mild facet arthrosis. Flattening of the ventral thecal sac with mild narrowing of the left lateral recess. Moderate left and mild right foraminal narrowing. C6-C7: Mild to moderate disc space narrowing with spondylitic spurring, circumferential annular disc bulge and mild facet arthrosis with central disc osteophyte complex. Flattening of the ventral thecal sac with mild central canal narrowing. Mild narrowing of the lateral recesses. Mild right and mild-t o-moderate left foraminal narrowing. C7-T1: Mild facet arthrosis with uncovertebral spurring. Central disc osteophyte complex flattens the ventral thecal sac. No central canal or right foraminal narrowing. Moderate left foraminal stenosis. IMPRESSION: 1. Cervical dextroscoliosis and thoracic levoscoliosis. 2. Discogenic degenerative changes and facet arthrosis as above, most pronounced at C5-C6 and C6-C7. 3. No high-grade central canal or foraminal narrowing. 4. Normal signal of the cervical spinal cord. ACT 112: Negative or not required by law. The above report was generated using voice recognition software. It may contain grammatical, syntax o r spelling errors. Electronically signed by: Trav Butterfield M.D. 05/06/2019 12:03 PM
--- NOTE | 2019-05-06 15:31 | Hospitalist Progress Note ---
Date of Service May 06, 2019 Assessment & Plan (1) Acute pancreatitis: Had recent imaging at [facility]. Outpatient EUS recommended. Now with recurrence. Patient states that last drink was > 2 weeks ago. Gallbladder US now shows sludge. Continue IV fluids. Analgesics / anti-emetics PRN. Advance diet as tolerated. (2) GERD (gastroesophageal reflux disease): Continue PPI. (3) Lower extremity weakness: Lower extremity weakness and paresthesiae- consider spinal cord pathology, neuropathy. Also has neck pain and upper extremity weakness. Was advised to get imaging of spine YINKA. MR imaging of the cervical/thoracic/lumbar spine performed this morning and demonstrated some degenerative disc disease, levoscoliosis, no high-grade central canal or foraminal narrowing. May have neuropathy from alcoholism or other etiologies. Electrolyte abnormalities and vitamin deficiencies may be contributing factors. PT/OT evaluations. Consult Neurology. (4) Hypokalemia: K 3.0. Replace. K today = 3.2. Follow. (5) Hypomagnesemia: Serum magnesium 1.4. Replace. Follow. (6) Macrocytosis: MCV 112. LFT's OK despite history of alcoholism. Folate 2.05. Vitamin B12 level 315. TSH normal. (7) Folic acid deficiency: Serum folate level = 2. Oral replacement. (8) Vitamin D deficiency: 25-OH vitamin D level 10. Start replacement with vitamin D 50,000 units weekly x4 weeks followed by 2000 units daily. (9) Malnutrition: Patient states that her weight fluctuates. She has evidence of electrolyte and vitamin deficiencies as noted above. Consult Nutrition. (10) History of alcohol use: Pt reports heavy consumption of alcohol in past, none since 04/13/19. Monitor for withdrawal symptoms. Thiamine, MVI. (11) DVT prophylaxis: SQ enoxaparin. Ambulate. (12) Discharge planning issues: Discharge disposition to be determined. Medical follow-up with Dr. Moya in [place]. Subjective Recheck for multiple problems. Patient seen in their room around 1050. Still having epigastric abdominal pain; analgesics help. No nausea or vomiting. Loose stools without melena or hematochezia. Ongoing weakness of upper and lower extremities. Review of Systems: Constitutional- no fever. Cardiac- no chest pain. Pulmonary- no cough or SOB. GI- as noted above. - no urinary symptoms. Otherwise, as noted above. Physical Exam Constitutional: no acute distress Eyes: + anicteric sclerae Respiratory: no respiratory distress Auscultation: lungs clear to auscultation bilaterally Cardiovascular: Rate/Rhythm: regular rate and regular rhythm Heart Sounds: no gallop Vessels: no JVD Extremities: no calf tenderness and no edema Gastrointestinal (Abdomen): Inspection/Auscultation: normal bowel sounds; abdomen not distended Percussion/Palpation: + abdomen tender (mild epigastric) and abdomen soft Musculoskeletal: Extremities: no cyanosis Skin: no rashes, warm and dry Psychiatric: Orientation: alert and oriented x 3 Results & Data Vital Signs (Past 12 Hours) Vital Signs Temp Pulse Pulse Pulse Resp BP BP 05/06/19 15:08 98 H 05/06/19 15:03 36.6 C 85 18 135/89 05/06/19 09:00 90 05/06/19 08:31 36.3 C L 98 H 18 129/92 05/06/19 04:30 84 05/06/19 03:48 36.6 C 97 H 18 142/94 H Pulse Ox 05/06/19 15:08 05/06/19 15:03 97 05/06/19 09:00 05/06/19 08:31 97 05/06/19 04:30 05/06/19 03:48 100 Laboratory Results Laboratory Results - last 24 hr 05/05/19 05/06/19 05/06/19 19:35 06:04 06:04 WBC 6.29 RBC 2.75 L Hgb 10.9 L Hct 31.1 L MCV 113.1 H MCH 39.6 H MCHC 35.0 RDW Std Deviation 59.4 H RDW Coeff of Jane 14.4 Plt Count 364 MPV 10.5 H Sodium Potassium Chloride Carbon Dioxide Anion Gap BUN Creatinine Est Cr Clr Drug Dosing Est GFR ( Amer) Est GFR (Non-Af Amer) BUN/Creatinine Ratio Glucose Calcium Magnesium Lipase Vitamin B1 Pending Vitamin B6 Pending Vitamin B12 25-OH Vitamin D Total TSH Stool Fat Screen Cancelled Stl C. diff Tox B Gene Positive Cdiff Gene H Stl C.difficile Tox A&B Negative Cdiff Toxin 05/06/19 05/06/19 05/06/19 06:04 06:04 06:04 WBC RBC Hgb Hct MCV MCH MCHC RDW Std Deviation RDW Coeff of Jane Plt Count MPV Sodium 138 Potassium 3.2 L Chloride 105 Carbon Dioxide 28 Anion Gap 5.0 BUN 1 L Creatinine 0.32 L Est Cr Clr Drug Dosing 229.6 Est GFR ( Amer) > 150.0 Est GFR (Non-Af Amer) 134.4 BUN/Creatinine Ratio 4.5 L Glucose 84 Calcium 8.6 Magnesium 1.4 L Lipase 740 H Vitamin B1 Vitamin B6 Vitamin B12 315 25-OH Vitamin D Total 10.0 L TSH 2.200 Stool Fat Screen Stl C. diff Tox B Gene Stl C.difficile Tox A&B (1) Acute pancreatitis Acute pancreatitis complication: unspecified Pancreatitis type: unspecified pancreatitis type Qualified Code(s): K85.90 - Acute pancreatitis without necrosis or infection, unspecified
[2019-05-06] MEDS ORDERED: TRAMADOL HCL 50 MG TABLET PO PRN (15:37)
[2019-05-06] MEDS ORDERED: KETOROLAC TROMETHAMINE 15 MG/ML VIAL IV PRN (15:38)
[2019-05-06] MEDS ORDERED: ERGOCALCIFEROL 50,000 UNITS CAP PO SCH (15:45)
[2019-05-06] MEDS: FOLIC ACID 1 MG TAB PO SCH (17:06)
[2019-05-06] MEDS: THIAMINE HCL 100 MG TAB PO SCH (17:06)
[2019-05-06] MEDS: VITAMIN B COMPLEX TAB PO SCH (17:06)
[2019-05-06] MEDS: ACETAMINOPHEN 325 MG TAB PO PRN (19:59)
[2019-05-06] MEDS: ZOLPIDEM TARTRATE 10 MG TAB PO SCH (22:26)
[2019-05-07 00:01] LABS: Marijuana Quant, GCMS Urine 1260 ng/mL (<5)
[2019-05-07] MEDS: ACETAMINOPHEN 325 MG TAB PO PRN ×4 (01:21→16:58)
[2019-05-07] MEDS: RASPBERRY SYRUP 5 ML UDP PO SCH ×4 (05:54→23:40)
[2019-05-07] MEDS: VANCOMYCIN HCL 125 MG/2.5ML SOLN PO SCH ×4 (05:54→23:40)
[2019-05-07] MEDS: clonazePAM 0.5 MG TAB PO PRN ×4 (05:57→23:42)
[2019-05-07] MEDS: POTASSIUM CHLORIDE 20 MEQ, MAGNESIUM SULFATE 50% 1 GM in D5W AND 1/2NSS 1,000 ML IV SCH ×2 (07:52→17:58)
[2019-05-07 08:50] LABS: BUN Creatinine Ratio 2.7 (10-20); Calcium 8.5 mg/dl (8.5-10.1); Est GFR (African American) 140.3; Est GFR (Non-African American) 121.1; Magnesium 2.1 mg/dl (1.8-2.4); Potassium 3.7 mmol/L (3.5-5.1)
[2019-05-07] MEDS: THIAMINE HCL 100 MG TAB PO SCH (09:03)
[2019-05-07] MEDS: MAGNESIUM CHLORIDE 64MG DELAYED REL TAB PO SCH ×2 (09:03→20:56)
[2019-05-07] MEDS: FOLIC ACID 1 MG TAB PO SCH (09:03)
[2019-05-07] MEDS: PANTOprazole 40 MG TAB PO SCH (09:03)
[2019-05-07] MEDS: VITAMIN B COMPLEX TAB PO SCH (09:04)
[2019-05-07] MEDS: DICYCLOMINE HCL 10 MG CAP PO SCH (09:04)
[2019-05-07] MEDS: POTASSIUM CHLORIDE 10 MEQ TABCR PO SCH ×4 (09:04→20:56)
[2019-05-07] MEDS: FAMOTIDINE 40 MG TABLET PO SCH (09:04)
[2019-05-07] MEDS: ENOXAPARIN INJ 40 MG/0.4 ML SYR SQ SCH (09:06)
[2019-05-07] MEDS: FLUTICASONE PROPIONATE NA SPR 16 GM BTL NAE SCH (09:07)
--- NOTE | 2019-05-07 13:52 | Neurology Consultation ---
Date of Consultation May 07, 2019 Assessment & Plan (1) Peripheral neuropathy: 1. MRI c/t/l spine no canal narrowing degenerative changes 2. PT/OT for discharge needs 3. EMG- done as outpatient no record in [facility] system- Dr Christianson in [place]- need records may need to repeat 4. discussed smoking cessation and continue EtOH cessation 5. B12- 315 is low for age- would replace 6. thiamine current 100 mg daily 7. c diff + defer to primary team for treatment 8. medical management by primary team neurology follow up in 4-6 weeks [facility] schedule (2) Vitamin D deficiency: (3) Folic acid deficiency: (4) Malnutrition: Supervising Physician Co-Signing Physician Notes A 48 year old woman with alcohol use disorder and acute pancreatitis admitted for paresthesias and numbness in hands and feet. Patient notes poor PO intake and recently stopped alcohol intake. Multiple metabollic abnormalities noted on serum labs including hypokalemia, hypomagnesia, folate deficiecy, and low B12. Patient also noted she does not eat meat and is a vegetarian. On examine no muscle weakness noted. She is able to stand from bed with arms crossed. Gait is wide based. Difficulty with standing with feat together and eyes closed. Position sense is intact. Knee jerks are 2+ with jendrassik maneuver. Jara negative. No clonus. 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 Recommend starting B-complex vitamin as well as thiamine tablet daily. Would recommend nutrition consultation. PT for discharge recommendations. Recommend outpatient EMG. Please call me with any further questions or concerns. History of Present Illness Reason for Consultation: paresthesia and ataxia Requesting Physician: Donal Miller MD Attending Physician: Donal Miller MD History of Present Illness Cortez is a 48 year old female with PMH - GERD, depression, anxiety, PTSD, tobacco use disorder, history of alcohol use disorder, marijuana. She presented to the [facility] ED for evaluation of paresthesias B/L LE. The numbness and tingling started in her right toes back during Mansi time and has asceneded up to her waist. She was seen by neurology in [place] for an outpatient work- up for peripheral neuropathy and is already had an EMG which she is unsure of the results but Dr Christianson did tell her she should proceed to the ED. She has a poor diet vegetarian and vegan. She also had mild left sided abdominal pain that has persisted since the beginning of the week and was admitted to [facility] 04/29-05/02 for acute pancreatitis. She states she was a heavy drinker of EtOH (vodka) several glasses per day but quit at the beginning of April with no withdrawal symptoms. CT abd/pelvis from 04/29/19 with findings consistent with acute interstitial pancreatitis. She also admits to using marijuana, and smokes 1 pack/day for the past 20 years. She is also complaining of lip and chin numbness which started at the beginning of April. she has also had multiple falls, but states she has been clumpy all her life. denies CP, SOB, abdominal pain, vision changes, swallowing difficulty, N, V, new bowel or bladder issues. Allergies Allergy/AdvReac Type Severity Reaction Status Date / Time gluten Allergy Verified 05/06/19 16:17 caffeine AdvReac Verified 05/06/19 16:17 Home Medications Home Medications Medication Instructions Recorded Confirmed Type buspirone 10 mg PO TID 05/04/19 05/04/19 History clonazepam [Klonopin] 0.5 mg PO QID PRN 05/04/19 05/04/19 History dicyclomine 10 mg PO DAILY 05/04/19 05/04/19 History famotidine [Pepcid] 40 mg PO DAILY 05/04/19 05/04/19 History fluticasone propionate 2 spray INTRANASAL DAILY 05/04/19 05/04/19 History gabapentin 300 mg PO TID 05/04/19 05/04/19 History melatonin [Melatin] 3 mg PO HS 05/04/19 05/04/19 History omeprazole 40 mg PO DAILY 05/04/19 05/04/19 History zolpidem [Ambien] 10 mg PO HS 05/04/19 05/04/19 History Patient History Surgical History S/P removal of ovarian cyst Family History Other Diabetes Social History Preferred Language: Citizen Of [place] Communication Ability: Effective Ortho Rn Required: No Beliefs That Will Affect Care: None Current Living Situation: Significant Other Feels Safe at Home: Yes Smoking Status: Current every day smoker Tobacco Type: cigarettes ; packs per day: 1 ; Years Smoked: 20 ; Cigarettes Per Day: 20 ; Do You Dip or Chew Tobacco: No ; Hx Alcohol Use: No (quit apr 13.) Hx Substance Use: No Physical Exam Physical Exam: Physical Exam: Constitutional: appearance thin pale Ears, Nose, Mouth and Throat: mucous membranes moist, no injection and skin normal, eyes normal Cardiovascular: normal S-1 and S-2 and regular rate and rhythm Respiratory: course breath sounds with wheezing Musculoskeletal: poor muscle tone Skin: no stigmata of neurocutaneous disease noted and normal and intact Eyes: extraocular muscles intact (EOMI) and pupils equal, round and reactive to light (PERRL) NEUROLOGIC EXAMINATION: Mental status: Alert and interactive Oriented to full date and location Oriented to person Speech fluent with no evidence of aphasia Cranial Nerves smile symmetric tongue midline Reflexes: Deep tendon reflexes were symmetrical decrease UE, LE, no ankle jerk no clonus Sensory: decreased sensation to vibration, cool touch to knees Coordination: Romberg absent Gait/Stance: Posture normal. Gait unable to walk straight line, wide gait Motor: Negative for pronator drift of out stretched arms with eyes closed. Strength: hand senior office assistant biceps triceps intrinsics bilaterally 5/5, hip flex plantar flex ext 5/5 Results & Data Vital Signs (Past 12 Hours) Vital Signs Temp Pulse Resp BP Pulse Ox 05/07/19 07:00 36.7 C 78 18 122/74 94 Laboratory Results Abnormal lab results 05/04/19 05/07/19 Range/Units 14:40 07:57 Chloride 110 H (98-107) mmol/L BUN 1 L (7-18) mg/dl Creatinine 0.44 L (0.6-1.2) mg/dl BUN/Creatinine Ratio 2.7 L (10-20) Glucose 103 H (70-99) mg/dl U Marijuana THC Carboxy 1260 H (<5) ng/mL Diagnostic Findings liver UE-There is biliary sludge. No shadowing gallstones are identified. The pancreas is heterogeneous in echotexture. Trace right pleural effusion. MRI c spine-Cervical dextroscoliosis and thoracic levoscoliosis. 2. Discogenic degenerative changes and facet arthrosis as above, most pronounced at C5-C6 and C6-C7. No high-grade central canal or foraminal narrowing. Normal signal of the cervical spinal cord. MRI T spine- Levoscoliosis of the midthoracic spine. No acute fracture, subluxation, significant central canal or foraminal narrowing. Incidental note is made of trace pleural effusions. MRI L spine-No acute fracture or subluxation. Discogenic degeneration and facet arthrosis at L4-L5 and L5-S1 as above. Mild bone marrow edema involving the left L4 and L5 pedicles suggests stress response. Mild soft tissue edema surrounding the left L4-L5 facet is likely reactive secondary to associated degeneration. No high-grade central canal or foraminal narrowing.
[2019-05-07] MEDS ORDERED: Nursing to Pharmacy Communication ONE (19:53)
--- NOTE | 2019-05-07 20:25 | Hospitalist Progress Note ---
Date of Service May 07, 2019 Assessment & Plan (1) Acute pancreatitis: Had recent imaging and GI consult at [facility]. Outpatient EUS recommended. Presented with recurrent abdominal pain. Patient states that last drink was > 2 weeks ago. Gallbladder US showed sludge. Received IV fluids, analgesics, anti-emetics PRN. Advance diet as tolerated. (2) GERD (gastroesophageal reflux disease): Continue PPI. (3) Lower extremity weakness: Lower extremity weakness and paresthesiae- consider spinal cord pathology, neuropathy. Also has neck pain and upper extremity weakness. Was advised to get imaging of spine YINKA. MR imaging of the cervical/thoracic/lumbar spine performed this morning and demonstrated some degenerative disc disease, levoscoliosis, no high-grade central canal or foraminal narrowing. May have neuropathy from alcoholism or other etiologies. Electrolyte abnormalities and vitamin deficiencies may be contributing factors. PT/OT evaluations. Consult Neurology. (4) Hypokalemia: K as low as 3.0. Receiving replacement. K today = 3.7. Follow. (5) Hypomagnesemia: Serum magnesium as low as 1.4. Receiving replacement. Mg today = 2.1. Follow. (6) Macrocytosis: MCV 112. LFT's OK despite history of alcoholism. Folate 2.05. Vitamin B12 level 315. TSH normal. (7) Folic acid deficiency: Serum folate level = 2. Oral replacement. (8) Vitamin D deficiency: 25-OH vitamin D level 10. Start replacement with vitamin D 50,000 units weekly x4 weeks followed by 2000 units daily. (9) Malnutrition: Patient states that her weight fluctuates. She has evidence of electrolyte and vitamin deficiencies as noted above. Consult Nutrition. (10) History of alcohol use: Pt reports heavy consumption of alcohol in past, none since 04/13/19. Monitor for withdrawal symptoms. Thiamine, MVI. (11) DVT prophylaxis: SQ enoxaparin. Ambulate. (12) Discharge planning issues: Discharge disposition to be determined. Medical follow-up with Dr. Moya in [place]. Subjective Recheck for multiple problems. Patient seen in their room around 0940 with assistance of Retail Team Leader. Abdominal pain improved. Tolerating diet. No nausea or vomiting. Loose stools without melena or hematochezia, improved. Ongoing weakness of upper and lower extremities. Review of Systems: Constitutional- no fever. Cardiac- no chest pain. Pulmonary- no cough or SOB. GI- as noted above. - no urinary symptoms. Otherwise, as noted above. Physical Exam Constitutional: no acute distress Eyes: + anicteric sclerae Respiratory: no respiratory distress Auscultation: lungs clear to auscultation bilaterally Cardiovascular: Rate/Rhythm: regular rate and regular rhythm Heart Sounds: no gallop Vessels: no JVD Extremities: no calf tenderness and no edema Gastrointestinal (Abdomen): Inspection/Auscultation: normal bowel sounds; abdomen not distended Percussion/Palpation: + abdomen tender (mild epigastric) and abdomen soft Musculoskeletal: Extremities: no cyanosis Skin: no rashes, warm and dry Psychiatric: Orientation: alert and oriented x 3 Results & Data Vital Signs (Past 12 Hours) Vital Signs Temp Pulse Resp BP Pulse Ox 05/07/19 15:00 36.6 C 78 20 129/81 94 Laboratory Results Laboratory Results - last 24 hr 05/04/19 05/07/19 05/07/19 14:40 07:29 07:57 Sodium 142 Potassium 3.7 D Chloride 110 H Carbon Dioxide 23 Anion Gap 9.0 BUN 1 L Creatinine 0.44 L Est Cr Clr Drug Dosing 167.0 Est GFR ( Amer) 140.3 Est GFR (Non-Af Amer) 121.1 BUN/Creatinine Ratio 2.7 L Glucose 103 H Calcium 8.5 Magnesium 2.1 Total Creatine Kinase Stool Fat Screen Pending U Marijuana THC Carboxy 1260 H Drug Screen Comment SEE NOTE 05/07/19 07:57 Sodium Potassium Chloride Carbon Dioxide Anion Gap BUN Creatinine Est Cr Clr Drug Dosing Est GFR ( Amer) Est GFR (Non-Af Amer) BUN/Creatinine Ratio Glucose Calcium Magnesium Total Creatine Kinase 42 Stool Fat Screen U Marijuana THC Carboxy Drug Screen Comment (1) Acute pancreatitis Acute pancreatitis complication: unspecified Pancreatitis type: unspecified pancreatitis type Qualified Code(s): K85.90 - Acute pancreatitis without necrosis or infection, unspecified
[2019-05-07] MEDS: GABAPENTIN 100 MG CAP PO SCH (20:56)
[2019-05-07] MEDS: ZOLPIDEM TARTRATE 10 MG TAB PO SCH (21:59)
[2019-05-08] MEDS: ACETAMINOPHEN 325 MG TAB PO PRN ×5 (03:24→21:59)
[2019-05-08] MEDS: VANCOMYCIN HCL 125 MG/2.5ML SOLN PO SCH ×3 (06:03→18:17)
[2019-05-08] MEDS: RASPBERRY SYRUP 5 ML UDP PO SCH ×3 (06:03→18:17)
[2019-05-08] MEDS: clonazePAM 0.5 MG TAB PO PRN ×3 (06:07→18:17)
[2019-05-08 07:04] LABS: BUN Creatinine Ratio 4.8 (10-20); Calcium 8.8 mg/dl (8.5-10.1); Creatinine Clr Calc Pharmacy 159.7 ml/min; Est GFR (African American) 138.3; Est GFR (Non-African American) 119.3; Magnesium 2.3 mg/dl (1.8-2.4); Potassium 4.4 mmol/L (3.5-5.1)
[2019-05-08] MEDS: DICYCLOMINE HCL 10 MG CAP PO SCH (08:52)
[2019-05-08] MEDS: FLUTICASONE PROPIONATE NA SPR 16 GM BTL NAE SCH (08:53)
[2019-05-08] MEDS: ENOXAPARIN INJ 40 MG/0.4 ML SYR SQ SCH (08:54)
[2019-05-08] MEDS: POTASSIUM CHLORIDE 10 MEQ TABCR PO SCH ×4 (08:54→22:02)
[2019-05-08] MEDS: FOLIC ACID 1 MG TAB PO SCH (08:54)
[2019-05-08] MEDS: GABAPENTIN 100 MG CAP PO SCH ×2 (08:55→21:59)
[2019-05-08] MEDS: FAMOTIDINE 40 MG TABLET PO SCH (08:55)
[2019-05-08] MEDS: CYANOCOBALAMIN 500 MCG TABLET (VITAMIN B-12) PO SCH (08:56)
[2019-05-08] MEDS: VITAMIN B COMPLEX TAB PO SCH (08:56)
[2019-05-08] MEDS: THIAMINE HCL 100 MG TAB PO SCH (08:56)
[2019-05-08] MEDS: MAGNESIUM CHLORIDE 64MG DELAYED REL TAB PO SCH ×2 (08:56→21:59)
[2019-05-08] MEDS: PANTOprazole 40 MG TAB PO SCH (08:56)
--- NOTE | 2019-05-08 11:09 | Communication Note ---
Date of Service: May 08, 2019 I was asked by Dr. Miller to talk with this pt about her request to move up post acute pancreatitis EUS. Reviewed EPIC records: hospitalized at [facility] 04/29- for an initial episode of acute pancreatitis CT suggested acute pancreatitis w/o cysts or necrosis, lipase there>3000->116. Thought secondary to hx of increased ETOH intake though has abstained since 04/11/19. Pain recurred and admitted here on 05/04. Here US with gallbladder sludge and lipase 1160->40. LFTs normal. I spoke with Dr. Miller, the pt and [facility] schedulers. I explained that the purpose of the EUS is to evaluate the stricture of the pancreas and r/o small pancreases masses. This procedures needs to be completed after the acute inflammation has resolved, as acute inflammation obscures the view of pancreas structure and masses. Because our [facility] schedulers have not been able to reach the pt thus far, I called our schedulers from the pt's room and an appt for EUS with Dr. Morrissey at [facility] was scheduled for 06/05/19. Pt agrees to this plan. Additionally, because US here at [facility] suggests gallbladder sludge, I recommend surgery consult (Dr. Miller will discuss with pt and consider).
--- NOTE | 2019-05-08 21:24 | Hospitalist Progress Note ---
Date of Service May 08, 2019 Assessment & Plan (1) Acute pancreatitis: Had recent imaging and GI consult at [facility]. CT of abdomen and pelvis demonstrated acute pancreatitis, no cholelithiasis. US demonstrated hepatic steatosis, no biliary calculi. Outpatient EUS recommended in about 6 weeks- scheduled for 06/05/19. Presented with recurrent abdominal pain. Patient states that last drink was > 2 weeks ago. Gallbladder US showed sludge. Received IV fluids, analgesics, anti-emetics PRN. Advance diet as tolerated. Consult General Surgery re: gallbladder findings. (2) GERD (gastroesophageal reflux disease): Continue PPI. (3) Lower extremity weakness: Lower extremity weakness and paresthesiae- consider spinal cord pathology, neuropathy. Also has neck pain and upper extremity weakness. Was advised to get imaging of spine YINKA. MR imaging of the cervical/thoracic/lumbar spine performed this morning and demonstrated some degenerative disc disease, levoscoliosis, no high-grade central canal or foraminal narrowing. May have neuropathy from alcoholism or other etiologies. Electrolyte abnormalities and vitamin deficiencies may be contributing factors. PT/OT evaluations. Neurology consulted. Try to get results of EMG/NCV from [place]. Started on gabapentin for neuropathic pain; titrate as necessary. (4) Hypokalemia: K as low as 3.0. Receiving replacement. K today = 4.4. Follow. (5) Hypomagnesemia: Serum magnesium as low as 1.4. Receiving replacement. Mg today = 2.3. Follow. (6) Macrocytosis: MCV 112. LFT's OK despite history of alcoholism. Folate 2.05. Vitamin B12 level 315. TSH normal. (7) Folic acid deficiency: Serum folate level = 2. Oral replacement. (8) Vitamin D deficiency: 25-OH vitamin D level 10. Start replacement with vitamin D 50,000 units weekly x4 weeks followed by 2000 units daily. (9) Malnutrition: Patient states that her weight fluctuates. She has evidence of electrolyte and vitamin deficiencies as noted above. Nutrition consulted. (10) History of alcohol use: Pt reports heavy consumption of alcohol in past, none since 04/13/19. Monitor for withdrawal symptoms. Thiamine, MVI. (11) Clostridium difficile diarrhea: Experiencing diarrhea at time of admission. C diff PCR positive, toxin negative. May or may not have C diff colitis, but will err on side of treatment given symptoms. Vancomycin 125 mg QID x 10 days. (12) Vaginal bleeding: Postmenopausal. Episode of vaginal bleeding. Needs outpatient appointment with Assistant Branch Operations Manager. (13) DVT prophylaxis: SQ enoxaparin. Ambulate. (14) Discharge planning issues: Discharge disposition to be determined. Having problems with strength and balance. May need rehab or skilled care. Medical follow-up with PCP in [place] (need to clarify PCP- Dr. Moya listed in [facility] and Dr. Espinoza listed in [facility].) Subjective Recheck for multiple problems. Patient seen in their room around 1500 with assistance of BSN Director Weights And Measures. Abdominal pain improved. Tolerating diet. No nausea or vomiting. Diarrhea improved. Had an episode of vaginal bleeding last evening; has not had menses for several years. Ongoing paresthesiae and weakness of lower extremities. Review of Systems: Constitutional- no fever. Cardiac- no chest pain. Pulmonary- no cough or SOB. GI- as noted above. - no urinary symptoms. Otherwise, as noted above. Physical Exam Constitutional: no acute distress Eyes: + anicteric sclerae Respiratory: no respiratory distress Auscultation: lungs clear to auscultation bilaterally Cardiovascular: Rate/Rhythm: regular rate and regular rhythm Heart Sounds: no gallop Vessels: no JVD Extremities: no calf tenderness and no edema Gastrointestinal (Abdomen): Inspection/Auscultation: normal bowel sounds; abdomen not distended Percussion/Palpation: + abdomen tender (mild epigastric) and abdomen soft Musculoskeletal: Extremities: no cyanosis Skin: no rashes, warm and dry Psychiatric: Orientation: alert and oriented x 3 Results & Data Vital Signs (Past 12 Hours) Vital Signs Temp Pulse Resp BP Pulse Ox 05/08/19 15:05 36.3 C L 68 20 121/86 98 Laboratory Results Laboratory Results - last 24 hr 05/07/19 05/08/19 07:29 05:49 Sodium 140 Potassium 4.4 D Chloride 110 H Carbon Dioxide 24 Anion Gap 6.0 BUN 2 L Creatinine 0.46 L Est Cr Clr Drug Dosing 159.7 Est GFR ( Amer) 138.3 Est GFR (Non-Af Amer) 119.3 BUN/Creatinine Ratio 4.8 L Glucose 86 Calcium 8.8 Magnesium 2.3 Stool Fat Screen SEE NOTE (1) Acute pancreatitis Acute pancreatitis complication: unspecified Pancreatitis type: unspecified pancreatitis type Qualified Code(s): K85.90 - Acute pancreatitis without necrosis or infection, unspecified
[2019-05-08] MEDS: ZOLPIDEM TARTRATE 10 MG TAB PO SCH (22:05)
[2019-05-09] MEDS: clonazePAM 0.5 MG TAB PO PRN ×4 (00:17→19:07)
[2019-05-09] MEDS: RASPBERRY SYRUP 5 ML UDP PO SCH ×5 (00:17→23:34)
[2019-05-09] MEDS: VANCOMYCIN HCL 125 MG/2.5ML SOLN PO SCH ×5 (00:17→23:34)
[2019-05-09] MEDS: ACETAMINOPHEN 325 MG TAB PO PRN ×5 (04:41→21:58)
[2019-05-09] MEDS ORDERED: MoRPHine SULFATE 4 MG/ML 1 ML CARP\\VIAL IV STA (06:27)
[2019-05-09 07:19] LABS: BUN Creatinine Ratio 8.1 (10-20); Calcium 9.3 mg/dl (8.5-10.1); Est GFR (African American) 133.7; Est GFR (Non-African American) 115.3; Potassium 4.3 mmol/L (3.5-5.1)
--- NOTE | 2019-05-09 08:25 | Hospitalist Progress Note ---
Date of Service May 09, 2019 Assessment & Plan (1) Acute pancreatitis: Had recent imaging and GI consult at [facility]. CT of abdomen and pelvis demonstrated acute pancreatitis, no cholelithiasis. US demonstrated hepatic steatosis, no biliary calculi. Outpatient EUS recommended in about 6 weeks- scheduled for 06/05/19. Presented with recurrent abdominal pain. Patient states that last drink was > 2 weeks ago. Gallbladder US showed sludge. Received IV fluids, analgesics, anti-emetics PRN. Advance diet as tolerated. Consult General Surgery re: gallbladder findings, Plan for possible cholecystectomy tomorrow (05/10/2019) (2) GERD (gastroesophageal reflux disease): Continue PPI. (3) Lower extremity weakness: Lower extremity weakness and paresthesiae - consider spinal cord pathology, neuropathy. Also has neck pain and upper extremity weakness. Was advised to get imaging of spine YINKA. MR imaging of the cervical/thoracic/lumbar spine performed this morning and demonstrated some degenerative disc disease, levoscoliosis, no high-grade central canal or foraminal narrowing. May have neuropathy from alcoholism or other etiologies. Electrolyte abnormalities and vitamin deficiencies may be contributing factors. PT/OT evaluations. 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 There is also evidence of chronic L4 radiculopathy in both lower extremities, correlation with MRI of the lumbar spine is recommended. There is no evidence of myopathy in both lower extremities. The study was read by neurologist, Dr. Christianson. Started on gabapentin for neuropathic pain; titrate as necessary. Started on nutritional supplements. (4) Hypokalemia: K as low as 3.0. Receiving replacement. K today wnl Follow (5) Hypomagnesemia: Serum magnesium as low as 1.4. Receiving replacement. Mg today wnl Follow. (6) Macrocytosis: MCV 112. LFT's OK despite history of alcoholism. Folate 2.05. Vitamin B12 level 315. TSH normal. (7) Folic acid deficiency: Serum folate level = 2. Oral replacement. (8) Vitamin D deficiency: 25-OH vitamin D level 10. Start replacement with vitamin D 50,000 units weekly x4 weeks followed by 2000 units daily. (9) Malnutrition: Patient states that her weight fluctuates. She has evidence of electrolyte and vitamin deficiencies as noted above. Nutrition consulted. (10) History of alcohol use: Pt reports heavy consumption of alcohol in past, none since 04/13/19. Monitor for withdrawal symptoms. Thiamine, MVI. (11) Clostridium difficile diarrhea: Experiencing diarrhea at time of admission. C diff PCR positive, toxin negative. May or may not have C diff colitis, but will err on side of treatment given symptoms. Vancomycin 125 mg QID x 10 days. (12) Vaginal bleeding: Postmenopausal. Episode of vaginal bleeding. Needs outpatient appointment with Photographic Colorist. (13) DVT prophylaxis: SQ enoxaparin. Ambulate. (14) Discharge planning issues: Discharge disposition to be determined. Having problems with strength and balance. May need rehab or skilled care. Medical follow-up with PCP in [place] (need to clarify PCP- Dr. Moya listed in [facility] and Dr. Espinoza listed in [facility].) Subjective Patient is sitting up in bed, in no acute distress, has family/friends at the bedside. Denies any fevers, chills, chest pain, shortness of breath, says she had left upper quadrant pain at night which woke her up. Tolerating diet. No nausea or vomiting. Says paresthesia is better in her upper and lower extremities. Says that she had terrible pain in her right thigh when she first presented to the hospital, which is now a dull pain. She also says that her sensory loss in her hands is improving. She was evaluated by general surgery today, plan for cholecystectomy tomorrow. Review of Systems Review of Systems: All systems reviewed & are unremarkable except as noted in HPI & below Constitutional: no fever and no chills Respiratory: no cough, no dyspnea and no pain on inspiration Cardiovascular: no chest pain and no palpitations Gastrointestinal: + abdominal pain (LUQ) and + diarrhea/loose stools (improving); no nausea, no vomiting and no melena Physical Exam Physical Exam: Constitutional: Middle-aged female, sitting up in the bed, in n o acute distress Eyes: EOMI, PERRL, + anicteric sclerae Respiratory: no respiratory distress Auscultation: lungs clear to auscultation bilaterally, no wheezing, rhonchi or crackles Cardiovascular: Rate/Rhythm: regular rate and regular rhythm Heart Sounds: no gallop Vessels: no JVD Extremities: no calf tenderness and no edema Gastrointestinal (Abdomen): Inspection/Auscultation: normal bowel sounds; abdomen mildly distended but soft Percussion/Palpation: + abdomen tender at LUQ Musculoskeletal: Extremities: no cyanosis, moves extremities spontaneously, no lower extremity edema Skin: no rashes, warm and dry Neuro/Psychiatric: Orientation: alert and oriented x 3, speech fluent, but seems somewhat pressured, no facial asymmetry, moves all extremities spontaneously Results & Data Vital Signs (Past 12 Hours) Vital Signs Temp Pulse Resp BP Pulse Ox 05/09/19 07:15 36.3 C L 95 H 16 113/82 98 05/08/19 23:59 36.4 C L 70 20 115/77 98 Laboratory Results 05/09/19 05/07/19 Range/Units 06:27 07:29 Sodium 139 (136-145) mmol/L Potassium 4.3 (3.5-5.1) mmol/L Chloride 110 H (98-107) mmol/L Carbon Dioxide 24 (21-32) mmol/L Anion Gap 5.0 (3-11) BUN 4 L (7-18) mg/dl Creatinine 0.51 L (0.6-1.2) mg/dl Est Cr Clr Drug Dosing 144.0 ml/min Est GFR ( Amer) 133.7 Est GFR (Non-Af Amer) 115.3 BUN/Creatinine Ratio 8.1 L (10-20) Glucose 93 (70-99) mg/dl Calcium 9.3 (8.5-10.1) mg/dl Phosphorus 5.0 H (2.5-4.9) mg/dl Magnesium 2.0 (1.8-2.4) mg/dl Stool Fat Screen SEE NOTE Medications Administered Current Inpatient Medications Acetaminophen (Tylenol) 650 mg PO Q4H PRN PRN Reason: pain/fever Stop: 06/03/19 18:40 Last Admin: 05/09/19 04:41 Dose: 650 mg Documented by: Buspirone HCl (Buspar) 10 mg PO TID MADAI Stop: 06/03/19 20:59 Last Admin: 05/08/19 21:59 Dose: 10 mg Documented by: Clonazepam (Klonopin) 0.5 mg PO Q6H PRN PRN Reason: Anxiety Stop: 06/03/19 18:40 Last Admin: 05/09/19 06:15 Dose: 0.5 mg Documented by: Cyanocobalamin (Vitamin B-12) 1,000 mcg PO QAM [facility] Stop: 06/07/19 08:59 Last Admin: 05/08/19 08:56 Dose: 1,000 mcg Documented by: Dicyclomine HCl (Bentyl) 10 mg PO DAILY [facility] Stop: 06/04/19 08:59 Last Admin: 05/08/19 08:52 Dose: 10 mg Documented by: Enoxaparin Sodium (Lovenox) 40 mg SQ Q24H [facility] Stop: 06/04/19 08:59 Last Admin: 05/08/19 08:54 Dose: 40 mg Documented by: Ergocalciferol (Vitamin D2) 50,000 units PO Q7D [facility] Stop: 05/27/19 15:46 Last Admin: 05/06/19 17:06 Dose: 50,000 units Documented by: Famotidine (Pepcid) 40 mg PO DAILY [facility] Stop: 06/04/19 08:59 Last Admin: 05/08/19 08:55 Dose: 40 mg Documented by: Fluticasone Propionate (Flonase) 2 sprays SHADY DAILY [facility] Stop: 06/04/19 08:59 Last Admin: 05/08/19 08:53 Dose: 2 sprays Documented by: Folic Acid (Folvite) 1 mg PO QAM [facility] Stop: 06/05/19 15:44 Last Admin: 05/08/19 08:54 Dose: 1 mg Documented by: Gabapentin (Neurontin) 100 mg PO BID [facility] Stop: 06/06/19 20:59 Last Admin: 05/08/19 21:59 Dose: 100 mg Documented by: Magnesium Chloride (Slow-Mag) 64 mg PO BID [facility] Stop: 06/05/19 09:14 Last Admin: 05/08/19 21:59 Dose: 64 mg Documented by: Ondansetron HCl (Zofran) 4 mg IV Q6H PRN PRN Reason: Nausea Stop: 06/03/19 18:40 Last Admin: 05/06/19 04:02 Dose: 4 mg Documented by: Pantoprazole Sodium (Protonix) 40 mg PO DAILY [facility] Stop: 06/04/19 08:59 Last Admin: 05/08/19 08:56 Dose: 40 mg Documented by: Polyethylene Glycol (Miralax Powder Packet) 17 gm PO DAILY PRN PRN Reason: Constipation Stop: 06/03/19 18:40 Potassium Chloride (Klor-Con M10) 10 meq PO QID [facility] Stop: 06/05/19 12:59 Last Admin: 05/08/19 22:02 Dose: 10 meq Documented by: Raspberry (Raspberry) 5 ml PO Q6 [facility] Stop: 05/20/19 05:59 Last Admin: 05/09/19 06:15 Dose: 5 ml Documented by: Thiamine HCl (Vitamin B-1) 100 mg PO QAM [facility] Stop: 06/05/19 15:44 Last Admin: 05/08/19 08:56 Dose: 100 mg Documented by: Vancomycin HCl (Vancomycin Hcl) 125 mg PO Q6 [facility] Stop: 05/16/19 05:59 Last Admin: 05/09/19 06:15 Dose: 125 mg Documented by: Vitamin B Complex (Vitamin B Complex) 1 tab PO QAM [facility] Stop: 06/05/19 15:44 Last Admin: 05/08/19 08:56 Dose: 1 tab Documented by: Zolpidem Tartrate (Ambien) 10 mg PO HS [facility] Stop: 06/03/19 20:59 Last Admin: 05/08/19 22:05 Dose: 10 mg Documented by: (1) Acute pancreatitis Acute pancreatitis complication: unspecified Pancreatitis type: unspecified pancreatitis type Qualified Code(s): K85.90 - Acute pancreatitis without necrosis or infection, unspecified
[2019-05-09] MEDS: VITAMIN B COMPLEX TAB PO SCH (09:25)
[2019-05-09] MEDS: FAMOTIDINE 40 MG TABLET PO SCH (09:25)
[2019-05-09] MEDS: DICYCLOMINE HCL 10 MG CAP PO SCH (09:25)
[2019-05-09] MEDS: THIAMINE HCL 100 MG TAB PO SCH (09:25)
[2019-05-09] MEDS: FOLIC ACID 1 MG TAB PO SCH (09:25)
[2019-05-09] MEDS: CYANOCOBALAMIN 500 MCG TABLET (VITAMIN B-12) PO SCH (09:25)
[2019-05-09] MEDS: PANTOprazole 40 MG TAB PO SCH (09:25)
[2019-05-09] MEDS: ENOXAPARIN INJ 40 MG/0.4 ML SYR SQ SCH (09:26)
[2019-05-09] MEDS: MAGNESIUM CHLORIDE 64MG DELAYED REL TAB PO SCH ×2 (09:26→21:58)
[2019-05-09] MEDS: GABAPENTIN 100 MG CAP PO SCH ×2 (09:26→21:58)
[2019-05-09] MEDS: FLUTICASONE PROPIONATE NA SPR 16 GM BTL NAE SCH (09:27)
[2019-05-09] MEDS: POTASSIUM CHLORIDE 10 MEQ TABCR PO SCH ×4 (09:27→21:59)
--- NOTE | 2019-05-09 10:01 | Surgery Consultation ---
Date of Consultation May 09, 2019 Assessment & Plan (1) Biliary sludge determined by ultrasound: Recent pancreatitis, alcoholic vs biliary. With new finding of sludge, laparoscopic cholecystectomy is an option she wants to consider. Will tentatively plan for lap mauro with IOC tomorrow, Dr. Dias will discuss further with her. History of Present Illness Attending Physician: Jt Carbone MD History of Present Illness 48 y/o female recently admitted to [facility] for abdominal pain and pancreatitis. She was discharged on Tuesday, saw her PCP on Tuesday and had to be wheeled into the office. She was referred to the ER and she came to [facility]. GI was planning for outpatient EUS as initial imaging studies were inconclusive. Ultrasound now shows biliary sludge. She c/o now of some LUQ pain, has been eating regular food and not having any back or epigastric pain. She had been drinking heavily around the holiday season as she has a difficult time since the of her son 10 years ago. She states she has not had any alcohol since Apr 12. Allergies Allergy/AdvReac Type Severity Reaction Status Date / Time gluten Allergy Verified 05/06/19 16:17 caffeine AdvReac Verified 05/06/19 16:17 Home Medications Home Medications Medication Instructions Recorded Confirmed Type buspirone 10 mg PO TID 05/04/19 05/04/19 History clonazepam [Klonopin] 0.5 mg PO QID PRN 05/04/19 05/04/19 History dicyclomine 10 mg PO DAILY 05/04/19 05/04/19 History famotidine [Pepcid] 40 mg PO DAILY 05/04/19 05/04/19 History fluticasone propionate 2 spray INTRANASAL DAILY 05/04/19 05/04/19 History gabapentin 300 mg PO TID 05/04/19 05/04/19 History melatonin [Melatin] 3 mg PO HS 05/04/19 05/04/19 History omeprazole 40 mg PO DAILY 05/04/19 05/04/19 History zolpidem [Ambien] 10 mg PO HS 05/04/19 05/04/19 History Patient History Medical History Depression (Chronic) GERD (gastroesophageal reflux disease) (Chronic) History of alcohol use Pancreatitis Post traumatic stress disorder (PTSD) (Chronic) Tobacco use disorder Surgical History S/P removal of ovarian cyst Family History Other Diabetes Social History Preferred Language: Georgian Communication Ability: Effective Manager Mortgage Required: No Beliefs That Will Affect Care: None Current Living Situation: Significant Other Feels Safe at Home: Yes Smoking Status: Current every day smoker Tobacco Type: cigarettes ; packs per day: 1 ; Years Smoked: 20 ; Cigarettes Per Day: 20 ; Do You Dip or Chew Tobacco: No ; Hx Alcohol Use: No (quit apr 13.) Hx Substance Use: No Review of Systems Constitutional: no fever and no chills Gastrointestinal: + abdominal pain; no nausea (at present) and no vomiting Physical Exam Constitutional: + malnourished Respiratory: normal respiratory effort Cardiovascular: Rate/Rhythm: regular rate Gastrointestinal (Abdomen): Inspection/Auscultation: abdomen not distended Percussion/Palpation: abdomen soft; abdomen nontender Results & Data Vital Signs (Past 12 Hours) Vital Signs Temp Pulse Resp BP Pulse Ox 05/09/19 07:15 36.3 C L 95 H 16 113/82 98 05/08/19 23:59 36.4 C L 70 20 115/77 98 PG Care Time/CCT Total # of Minutes Spent Total Time Spent with Patient: Total time spent is greater than 50% in coordination of care (as documented) at patient's floor/unit and/or counseling patient: Coding Level of Care Code 43840 Inpt Consult Level 3 Diagnoses Biliary sludge determined by ultrasound K83.8
--- NOTE | 2019-05-09 16:38 | Anesthesiology Consultation ---
Date of Service May 09, 2019 Assessment & Plan (1) Encounter for pre-operative examination: Chart Review Chart Review: Acceptable Risk for Surgery and Patient NOT seen in Pre Admission Testing Consults Requested none History Surgery Operation Date: 05/10/19 12:20 Proposed Procedures p Laparoscopic Cholecystectomy with Cholangiogram - Tommy Dias MD Height/Weight Height: 5 ft 9 in Weight: 67.4 kg Allergies Allergy/AdvReac Type Severity Reaction Status Date / Time gluten Allergy Verified 05/06/19 16:17 caffeine AdvReac Verified 05/06/19 16:17 Medications Home Medications Medication Instructions Recorded Confirmed Last Taken buspirone 10 mg PO TID 05/04/19 05/04/19 Unknown clonazepam [Klonopin] 0.5 mg PO QID PRN 05/04/19 05/04/19 05/04/19 0.5mg dicyclomine 10 mg PO DAILY 05/04/19 05/04/19 Unknown famotidine [Pepcid] 40 mg PO DAILY 05/04/19 05/04/19 05/04/19 fluticasone propionate 2 spray INTRANASAL DAILY 05/04/19 05/04/19 Unknown gabapentin 300 mg PO TID 05/04/19 05/04/19 Unknown melatonin [Melatin] 3 mg PO HS 05/04/19 05/04/19 Unknown omeprazole 40 mg PO DAILY 05/04/19 05/04/19 05/04/19 zolpidem [Ambien] 10 mg PO HS 05/04/19 05/04/19 Unknown Active Medications Generic Name Dose Route Start Last Admin Trade Name Freq PRN Reason Stop Dose Admin Acetaminophen 650 mg 05/04/19 18:41 05/09/19 14:09 Tylenol PO 06/03/19 18:40 650 mg Q4H PRN Administration pain/fever Buspirone HCl 10 mg 05/04/19 21:00 05/09/19 12:38 Buspar PO 06/03/19 20:59 10 mg TID MAADI Administration Clonazepam 0.5 mg 05/05/19 13:31 05/09/19 12:37 Klonopin PO 06/03/19 18:40 0.5 mg Q6H PRN Administration Anxiety Cyanocobalamin 1,000 mcg 05/08/19 09:00 05/09/19 09:25 Vitamin B-12 PO 06/07/19 08:59 1,000 mcg QAM MADAI Administration Dicyclomine HCl 10 mg 05/05/19 09:00 05/09/19 09:25 Bentyl PO 06/04/19 08:59 10 mg DAILY MADAI Administration Ergocalciferol 50,000 units 05/06/19 15:45 05/06/19 17:06 Vitamin D2 PO 05/27/19 15:46 50,000 units Q7D MADAI Administration Famotidine 40 mg 05/05/19 09:00 05/09/19 09:25 Pepcid PO 06/04/19 08:59 40 mg DAILY MADAI Administration Fluticasone Propionate 2 sprays 05/05/19 09:00 05/09/19 09:27 Flonase SHADY 06/04/19 08:59 2 sprays DAILY MADAI Administration Folic Acid 1 mg 05/06/19 15:45 05/09/19 09:25 Folvite PO 06/05/19 15:44 1 mg QAM MADAI Administration Gabapentin 100 mg 05/07/19 21:00 05/09/19 09:26 Neurontin PO 06/06/19 20:59 100 mg BID MADAI Administration Magnesium Chloride 64 mg 05/06/19 09:15 05/09/19 09:26 Slow-Mag PO 06/05/19 09:14 64 mg BID MADAI Administration Ondansetron HCl 4 mg 05/04/19 18:41 05/06/19 04:02 Zofran IV 06/03/19 18:40 4 mg Q6H PRN Administration Nausea Pantoprazole Sodium 40 mg 05/05/19 09:00 05/09/19 09:25 Protonix PO 06/04/19 08:59 40 mg DAILY MADAI Administration Potassium Chloride 10 meq 05/06/19 13:00 05/09/19 12:39 Klor-Con M10 PO 06/05/19 12:59 10 meq QID MADAI Administration Raspberry 5 ml 05/06/19 06:00 05/09/19 12:37 Raspberry PO 05/20/19 05:59 5 ml Q6 MADAI Administration Thiamine HCl 100 mg 05/06/19 15:45 05/09/19 09:25 Vitamin B-1 PO 06/05/19 15:44 100 mg QAM MADAI Administration Vancomycin HCl 125 mg 05/06/19 06:00 05/09/19 12:37 Vancomycin Hcl PO 05/16/19 05:59 125 mg Q6 MADAI Administration Vitamin B Complex 1 tab 05/06/19 15:45 05/09/19 09:25 Vitamin B Complex PO 06/05/19 15:44 1 tab QAM MADAI Administration Zolpidem Tartrate 10 mg 05/04/19 21:00 05/08/19 22:05 Ambien PO 06/03/19 20:59 10 mg HS MADAI Administration Past Family History Family History Other Diabetes Social History Smoking Status: Current every day smoker tobacco type: cigarettes Smoking cigarettes per day: 20 Do You Dip or Chew Tobacco: No Hx Alcohol Use: No (quit apr 13.) Hx Substance Use: No substance use type: marijuana Physical Exam Vital Signs Last Vital Signs Temp 36.5 C 05/09/19 15:30 Pulse 100 H 05/09/19 15:30 Resp 16 05/09/19 15:30 BP 114/93 05/09/19 15:30 Pulse Ox 99 05/09/19 15:30 Testing Laboratory Results 05/06/19 06:04 05/09/19 06:27 Hemoglobin A1c 4.4 % (4.5-5.6) L 05/05/19 06:30 Urine Color Yellow 05/04/19 14:40 Urine Appearance Clear (Clear) 05/04/19 14:40 Urine pH 8.0 (4.5-7.5) H 05/04/19 14:40 Ur Specific Eads 1.009 (1.000-1.030) 05/04/19 14:40 Urine Protein Negative (Negative) 05/04/19 14:40 Urine Glucose (UA) Negative (Negative) 05/04/19 14:40 Urine Ketones 1+ (Negative) H 05/04/19 14:40 Urine Nitrite Negative (Negative) 05/04/19 14:40 Ur Leukocyte Esterase 3+ (Negative) H 05/04/19 14:40 Urine WBC (Auto) 10-30 /hpf (0-5) H 05/04/19 14:40 Urine RBC (Auto) 0-4 /hpf (0-4) 05/04/19 14:40 U Hyaline Cast (Auto) 1-5 /lpf (0-5) 05/04/19 14:40 U Epithel Cells (Auto) >30 /lpf (0-5) H 05/04/19 14:40 Urine Bacteria (Auto) Negative (Negative) 05/04/19 14:40 05/05/19 19:35 Escherichia coli Shiga Toxins Test - Final Stool Stool Culture - Final No Salmonella isolated, No Shigella isolated, No Campylobacter jejuni isolated. 05/04/19 14:40 Urine Culture - Final Urine,Clean Catch Gardnerella-like bacilli 05/04/19 14:40 POC Ur Test NEG Cervical Spine Date: 05/06/19 [facility], [place] [phone] Magnetic Resonance Report Patient: Gian BOOKER Date: 05/05/19 MR#: [id number]: 10 [facility] Acct ID:[id number]: Date: 1970ty Zip: [place] [address] Age: 48Location: 2N Sex: F Room/Bed: [facility] Att Phy: Donal Miller MDDiagnosis: BLE WEAKNESS,PANCREATITIS Sarah Beth Phy: Kerry Moya MDService Date: 05/06/19 Fam Phy:Interpreting Phy: Jarod Butterfield Admit Phy: Arlene Beltran MD Ordering Phy: Donal Miller MD cc: ~ MR cervical spine wo con HISTORY: 48 years-old Female neck pain, weakness of upper and lower extremities subacute neck pain with upper and lower extremity weakness COMPARISON: MRI thoracic and lumbar spine studies of same day TECHNIQUE: Multiplanar multisequence MRI of the cervical spine was obtained without the use of IV contrast. FINDINGS: Pilot Plant Technician localizer images demonstrate no gross extracranial abnormality. Convex right curvature of the mid cervical spine with partially imaged convex left cur vature of the thoracic spine. The imaged posterior fossa structures appear unremarkable. No cerebellar tonsillar herniation. No acute fracture or subluxation of the cervical spine. Signal within the brainstem and cervical spinal cord appear normal. No cord lesions identified. Modic type II endplate degeneration noted at C5-C6 and C6-C7. C2-C3: Mild facet arthrosis. No central canal or foraminal narrowing. C3-C4: Mild facet arthrosis. No central canal or foraminal narrowing. C4-C5: Mild uncovertebral spurring with mild facet arthrosis and tiny posterior annular disc bulge. No central canal or foraminal narrowing. C5-C6: Mild to moderate disc space narrowing with spondylitic spurring, circ umferential annular disc bulge and mild facet arthrosis. Flattening of the ventral thecal sac with mild narrowing of the left lateral recess. Moderate left and mild right foraminal narrowing. C6-C7: Mild to moderate disc space narrowing with spondylitic spurring, circumferential annular disc bulge and mild facet arthrosis with central disc osteophyte complex. Flattening of the ventral thecal sac with mild central canal narrowing. Mild narrowing of the lateral recesses. Mild right and mild-to-mo derate left foraminal narrowing. C7-T1: Mild facet arthrosis with uncovertebral spurring. Central disc osteophyte complex flattens the ventral thecal sac. No central canal or right foraminal narrowing. Moderate left foraminal stenosis. IMPRESSION: 1. Cervical dextroscoliosis and thoracic levoscoliosis. 2. Discogenic degenerative changes and facet arthrosis as above, most pronounced at C5-C6 and C6-C7. 3. No high-grade central canal or foraminal narrowing. 4. Normal signal of the cervical spinal cord. ACT 112: Negative or not required by law. The above report was generated using voice recognition software. It may contain grammatical, syntax or spelling errors. Electronically signed by: Trav Butterfield M.D. 05/06/2019 12:03 PM Dictated: 05/06/19 1154 Transcribed: 05/06/19 1154
[2019-05-09] MEDS: ZOLPIDEM TARTRATE 10 MG TAB PO SCH (21:58)
[2019-05-10] MEDS: clonazePAM 0.5 MG TAB PO PRN ×4 (01:08→18:51)
[2019-05-10] MEDS: ACETAMINOPHEN 325 MG TAB PO PRN (03:05)
[2019-05-10] MEDS ORDERED: KETOROLAC TROMETHAMINE 15 MG/ML VIAL IV ONE (03:57)
[2019-05-10] MEDS ORDERED: OXYCODONE HCL IR 5 MG TAB (IMMEDIATE RELEASE) PO PRN (03:59)
[2019-05-10] MEDS ORDERED: IOVERSOL 100ml IV PRN (04:06)
[2019-05-10] MEDS ORDERED: KETOROLAC TROMETHAMINE 15 MG/ML VIAL ONE (04:51)
[2019-05-10] MEDS: RASPBERRY SYRUP 5 ML UDP PO SCH ×3 (05:11→18:11)
[2019-05-10] MEDS: VANCOMYCIN HCL 125 MG/2.5ML SOLN PO SCH ×3 (05:11→18:11)
[2019-05-10] MEDS: LACTATED RINGER'S 1,000 ML IV SCH ×4 (05:30→16:15)
[2019-05-10 05:33] LABS: Basophils # (auto) 0.04 K/uL (0-0.2); Basophils % (auto) 0.7 %; Eosinophils # (auto) 0.29 K/uL (0-0.5); Eosinophils % (auto) 4.9 %; Hematocrit (blood only) 36.2 % (37-47); Hemoglobin 12.4 g/dL (12.0-16.0); Immature Granulocytes # (auto) 0.02 K/uL (0.00-0.02); Immature Granulocytes % (auto) 0.3 %; Lymphocytes % (auto) 37.3 %; Mean Corpuscular Hemoglobin 39.1 pg (25-34); Mean Corpuscular Hgb Conc 34.3 g/dL (32-36); Mean Corpuscular Volume 114.2 fL (80-100); Monocytes # (auto) 0.97 K/uL (0.11-0.59); Monocytes % (auto) 16.4 %; Neutrophils # (auto) 2.38 K/uL (1.4-6.5); Neutrophils % (auto) 40.4 %; Platelet Count 465 K/uL (130-400); RDW Coefficient of Variation 14.4 % (11.5-14.5); RDW Standard Deviation 60.5 fL (36.4-46.3); Red Blood Count 3.17 M/uL (4.2-5.4)
[2019-05-10 05:52] LABS: Prothrombin Time 10.7 Seconds (9.0-12.0)
[2019-05-10 05:54] LABS: Macrocytosis Present
[2019-05-10 05:57] LABS: Albumin Level 2.9 gm/dl (3.4-5.0); BUN Creatinine Ratio 13.8 (10-20); Creatinine Clr Calc Pharmacy 128.9 ml/min; Est GFR (African American) 128.9; Est GFR (Non-African American) 111.2; Potassium 4.2 mmol/L (3.5-5.1)
[2019-05-10 06:00] LABS: Albumin Globulin Ratio 0.8 (0.9-2); Bilirubin,Total 0.2 mg/dl (0.2-1); Globulin 3.8 gm/dl (2.5-4.0); Total Protein 6.7 gm/dl (6.4-8.2)
--- NOTE | 2019-05-10 06:50 | CT Scan Report ---
ABDOMEN AND PELVIS CT WITH IV CONTRAST HISTORY: Acute generalized abdominal pain worsening abd pain TECHNIQUE: Multiaxial CT images of the abdomen and pelvis were performed following the IV administrat ion of 93 cc of Optiray 320, A dose lowering technique was utilized adhering to the principles of AL SULAIMAN. COMPARISON STUDY: Ultrasound of the liver 05/04/2019 FINDINGS: Clear lung bases. No pneumatosis or pneumoperitoneum. The imaged inferior cardiac chambers are unrema rkable. Spleen, adrenal glands and gallbladder are unremarkable. Mild fatty infiltration of the liver adjacent to the falciform ligament. Liver is otherwise unremarkable. Patency of the hepatic and port al veins. No biliary ductal dilation. There is mild interstitial and peripancreatic edema involving t he pancreas, notably within the body and tail distributions. There is homogeneous enhancement of the pancreas. No peripancreatic fluid collection. Patent splenic artery and vein. There are a few bilateral renal hypodensities which are subcentimeter suggestive of probable cysts, h owever are too small to characterize. No ureteral calculi or obstructive uropathy. Unremarkable urina ry bladder and uterus. Multiple phleboliths of the pelvis. Mild calcified plaque the abdominal aorta without aneurysm. There is no adenopathy. No bowel obstruction or bowel wall thickening. There are se veral air and fluid-filled loops of small bowel within the abdomen and pelvis. Mild fecal retention. Normal appendix. Tiny fat filled periumbilical hernia. Soft tissues are unremarkable. Avascular necro sis of the left femoral head without articular collapse. IMPRESSION: 1. Findings compatible with acute uncomplicated pancreatitis. No evidence of pancreatic necrosis or p eripancreatic fluid collection. 2. No bowel obstruction or bowel wall thickening. Normal appendix. 3. 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 ACT 112: Negative or not required by law. The above report was generated using voice recognition software. It may contain grammatical, syntax o r spelling errors. Electronically signed by: Trav Butterfield M.D. 05/10/2019 6:49 AM
--- NOTE | 2019-05-10 07:03 | Communication Note ---
Date of Service: May 10, 2019 Patient complaining of worsening abdominal pain at 4 AM today as per RN. CT abdomen pelvis initial read: Acute pancreatitis. No evidence of pancreatic necrosis. No calcified gallstone. Gallbladder is not distended. AP Persistent pancreatitis Continue bowel rest Resume LRS IVF Will relay to AM provider.
[2019-05-10] MEDS: DICYCLOMINE HCL 10 MG CAP PO SCH (07:56)
[2019-05-10] MEDS: FLUTICASONE PROPIONATE NA SPR 16 GM BTL NAE SCH (07:56)
[2019-05-10] MEDS: GABAPENTIN 100 MG CAP PO SCH ×2 (07:57→20:59)
[2019-05-10] MEDS: MAGNESIUM CHLORIDE 64MG DELAYED REL TAB PO SCH ×2 (07:57→20:59)
[2019-05-10] MEDS: POTASSIUM CHLORIDE 10 MEQ TABCR PO SCH ×4 (07:57→21:01)
[2019-05-10] MEDS: VITAMIN B COMPLEX TAB PO SCH (07:57)
[2019-05-10] MEDS: THIAMINE HCL 100 MG TAB PO SCH (07:57)
[2019-05-10] MEDS: PANTOprazole 40 MG TAB PO SCH (07:57)
[2019-05-10] MEDS: CYANOCOBALAMIN 500 MCG TABLET (VITAMIN B-12) PO SCH (07:57)
[2019-05-10] MEDS: FOLIC ACID 1 MG TAB PO SCH (07:57)
[2019-05-10] MEDS: FAMOTIDINE 40 MG TABLET PO SCH (07:57)
--- NOTE | 2019-05-10 08:11 | Hospitalist Progress Note ---
Date of Service May 10, 2019 Assessment & Plan (1) Acute pancreatitis: Had recent imaging and GI consult at [facility]. CT of abdomen and pelvis demonstrated acute pancreatitis, no cholelithiasis. US demonstrated hepatic steatosis, no biliary calculi. Outpatient EUS recommended in about 6 weeks- scheduled for 06/05/19. Presented with recurrent abdominal pain. Patient states that last drink was > 2 weeks ago. Gallbladder US showed sludge. Received IV fluids, analgesics, anti-emetics PRN. Advance diet as tolerated. Consult General Surgery re: gallbladder findings, pt is now s/p laparoscopic cholecystectomy (05/10/2019), tolerated procedure well (2) GERD (gastroesophageal reflux disease): Continue PPI. (3) Lower extremity weakness: Lower extremity weakness and paresthesiae - consider spinal cord pathology, neuropathy. Also has neck pain and upper extremity weakness. Was advised to get imaging of spine YINKA. MR imaging of the cervical/thoracic/lumbar spine performed this morning and demonstrated some degenerative disc disease, levoscoliosis, no high-grade central canal or foraminal narrowing. May have neuropathy from alcoholism or other etiologies. Electrolyte abnormalities and vitamin deficiencies may be contributing factors. PT/OT evaluations. 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 There is also evidence of chronic L4 radiculopathy in both lower extremities, correlation with MRI of the lumbar spine is recommended. There is no evidence of myopathy in bot h lower extremities. The study was read by neurologist, Dr. Christianson. Started on gabapentin for neuropathic pain; titrate as necessary. Started on nutritional supplements. (4) Hypokalemia: K as low as 3.0. Replace and monitor (5) Hypomagnesemia: Serum magnesium as low as 1.4. Replace and monitor (6) Macrocytosis: MCV 112. LFT's OK despite history of alcoholism. Folate 2.05. Vitamin B12 level 315. TSH normal. (7) Folic acid deficiency: Serum folate level = 2. Oral replacement. (8) Vitamin D deficiency: 25-OH vitamin D level 10. Start replacement with vitamin D 50,000 units weekly x4 weeks followed by 2000 units daily. (9) Malnutrition: Patient states that her weight fluctuates. She has evidence of electrolyte and vitamin deficiencies as noted above. Nutrition consulted. (10) History of alcohol use: Pt reports heavy consumption of alcohol in past, none since 04/13/19. Monitor for withdrawal symptoms. Thiamine, MVI. (11) Clostridium difficile diarrhea: Experiencing diarrhea at time of admission. C diff PCR positive, toxin negative. May or may not have C diff colitis, but will err on side of treatment given symptoms. Vancomycin 125 mg QID x 10 days. (12) Vaginal bleeding: Postmenopausal. Episode of vaginal bleeding. Needs outpatient appointment with Operations Analyst. (13) DVT prophylaxis: SQ enoxaparin. Ambulate. (14) Discharge planning issues: Discharge disposition to be determined. Having problems with strength and balance. May need rehab or skilled care. Medical follow-up with PCP in [place] (need to clarify PCP- Dr. Moya listed in [facility] and Dr. Espinoza listed in [place].) Subjective Patient is sitting up in bed, in no acute distress. Denies any fevers, chills, chest pain, shortness of breath, also no significant abdominal pain. Pt is s/p lap cholecystectomy earlier today. Tolerated procedure well. She is in no distress, ambulates w/o difficulty. Last night pt had increased abd. pain, CT abd. obtained by chopper operator, showed pancreatitis (uncomlicated) Review of Systems Review of Systems: All systems reviewed & are unremarkable except as noted in HPI & below Constitutional: no fever and no chills Respiratory: no cough and no dyspnea Cardiovascular: no chest pain and no palpitations Gastrointestinal: + abdominal pain (improved); no nausea and no vomiting Physical Exam Physical Exam: Constitutional: Middle-aged female, sitting up in the bed, in no acute distress Eyes: EOMI, PERRL, + anicteric sclerae Respiratory: no respiratory distress Auscultation: lungs clear to auscultation bilaterally, no wheezing, rhonchi or crackles Cardiovascular: Rate/Rhythm: regular rate and regular rhythm, no murmurs or gallops Vessels: no JVD Extremities: no calf tenderness and no edema Gastrointestinal (Abdomen): Inspection/Auscultation: normal bowel sounds; abdomen mildly distended but soft, small incisions s/p surgery, only mildly tender to palpation Musculoskeletal: Extremities: no cyanosis, moves extremities spontaneously, no lower extremity edema Skin: no rashes, warm and dry Neuro/Psychiatric: Orientation: alert and oriented x 3, speech fluent, but seems somewhat pressured, no facial asymmetry, moves all extremities spontaneously Results & Data Vital Signs (Past 12 Hours) Vital Signs Temp Pulse Resp BP BP Pulse Ox 05/10/19 07:15 36.4 C L 74 16 110/72 99 05/09/19 23:00 36.5 C 84 20 120/86 99 Laboratory Results 05/10/19 05/10/19 05/10/19 Range/Units 05:17 05:17 05:17 WBC 5.90 (4.8-10.8) K/uL RBC 3.17 L (4.2-5.4) M/uL Hgb 12.4 (12.0-16.0) g/dL Hct 36.2 L (37-47) % MCV 114.2 H (80-100) fL MCH 39.1 H (25-34) pg MCHC 34.3 (32-36) g/dL RDW Std Deviation 60.5 H (36.4-46.3) fL RDW Coeff of Jane 14.4 (11.5-14.5) % Plt Count 465 H (130-400) K/uL MPV 11.0 H (7.4-10.4) fL Immature Gran % (Auto) 0.3 % Neut % (Auto) 40.4 % Lymph % (Auto) 37.3 % Harney % (Auto) 16.4 % Eos % (Auto) 4.9 % Baso % (Auto) 0.7 % Immature Gran # (Auto) 0.02 (0.00-0.02) K/uL Neut # (Auto) 2.38 (1.4-6.5) K/uL Lymph # (Auto) 2.20 (1.2-3.4) K/uL Harney # (Auto) 0.97 H (0.11-0.59) K/uL Eos # (Auto) 0.29 (0-0.5) K/uL Baso # (Auto) 0.04 (0-0.2) K/uL Macrocytosis Present PT 10.7 (9.0-12.0) Seconds INR 1.0 (0.9-1.1) Sodium 138 (136-145) mmol/L Potassium 4.2 (3.5-5.1) mmol/L Chloride 108 H (98-107) mmol/L Carbon Dioxide 22 (21-32) mmol/L Anion Gap 8.0 (3-11) BUN 8 (7-18) mg/dl Creatinine 0.57 L (0.6-1.2) mg/dl Est Cr Clr Drug Dosing 128.9 ml/min Est GFR ( Amer) 128.9 Est GFR (Non-Af Amer) 111.2 BUN/Creatinine Ratio 13.8 (10-20) Glucose 87 (70-99) mg/dl Calcium 9.0 (8.5-10.1) mg/dl Total Bilirubin 0.2 (0.2-1) mg/dl AST 11 L (15-37) U/L ALT 14 (12-78) U/L Alkaline Phosphatase 73 (45-117) U/L Total Protein 6.7 (6.4-8.2) gm/dl Albumin 2.9 L (3.4-5.0) gm/dl Globulin 3.8 (2.5-4.0) gm/dl Albumin/Globulin Ratio 0.8 L (0.9-2) Lipase 880 H (73-393) U/L Medications Administered Current Inpatient Medications Acetaminophen (Tylenol) 650 mg PO Q4H PRN PRN Reason: pain/fever Stop: 06/03/19 18:40 Last Admin: 05/10/19 03:05 Dose: 650 mg Documented by: Buspirone HCl (Buspar) 10 mg PO TID [facility] Stop: 06/03/19 20:59 Last Admin: 05/10/19 07:56 Dose: Not Given Documented by: Clonazepam (Klonopin) 0.5 mg PO Q6H PRN PRN Reason: Anxiety Stop: 06/03/19 18:40 Last Admin: 05/10/19 07:08 Dose: 0.5 mg Documented by: Cyanocobalamin (Vitamin B-12) 1,000 mcg PO QAM [facility] Stop: 06/07/19 08:59 Last Admin: 05/10/19 07:57 Dose: Not Given Documented by: Dicyclomine HCl (Bentyl) 10 mg PO DAILY [facility] Stop: 06/04/19 08:59 Last Admin: 05/10/19 07:56 Dose: Not Given Documented by: Ergocalciferol (Vitamin D2) 50,000 units PO Q7D [facility] Stop: 05/27/19 15:46 Last Admin: 05/06/19 17:06 Dose: 50,000 units Documented by: Famotidine (Pepcid) 40 mg PO DAILY [facility] Stop: 06/04/19 08:59 Last Admin: 05/10/19 07:57 Dose: Not Given Documented by: Fluticasone Propionate (Flonase) 2 sprays SHADY DAILY [facility] Stop: 06/04/19 08:59 Last Admin: 05/10/19 07:56 Dose: Not Given Documented by: Folic Acid (Folvite) 1 mg PO QAM [facility] Stop: 06/05/19 15:44 Last Admin: 05/10/19 07:57 Dose: Not Given Documented by: Gabapentin (Neurontin) 100 mg PO BID [facility] Stop: 06/06/19 20:59 Last Admin: 05/10/19 07:57 Dose: Not Given Documented by: Lactated Ringer's (Lr) 1,000 mls @ 200 mls/hr IV .Q5H [facility] Stop: 06/09/19 05:14 Last Admin: 05/10/19 05:30 Dose: 200 mls/hr Documented by: Ioversol (Optiray 320 100ml) 100 ml IV ONCE PRN PRN Reason: Interaction Checking Stop: 05/14/19 04:05 Last Admin: 05/10/19 04:06 Dose: 93 ml Documented by: Magnesium Chloride (Slow-Mag) 64 mg PO BID [facility] Stop: 06/05/19 09:14 Last Admin: 05/10/19 07:57 Dose: Not Given Documented by: Ondansetron HCl (Zofran) 4 mg IV Q6H PRN PRN Reason: Nausea Stop: 06/03/19 18:40 Last Admin: 05/06/19 04:02 Dose: 4 mg Documented by: Oxycodone HCl (Roxicodone Immediate Rel) 5 mg PO Q4H PRN PRN Reason: Pain Stop: 05/24/19 03:58 Pantoprazole Sodium (Protonix) 40 mg PO DAILY [facility] Stop: 06/04/19 08:59 Last Admin: 05/10/19 07:57 Dose: Not Given Documented by: Polyethylene Glycol (Miralax Powder Packet) 17 gm PO DAILY PRN PRN Reason: Constipation Stop: 06/03/19 18:40 Potassium Chloride (Klor-Con M10) 10 meq PO QID [facility] Stop: 06/05/19 12:59 Last Admin: 05/10/19 07:57 Dose: Not Given Documented by: Raspberry (Raspberry) 5 ml PO Q6 [facility] Stop: 05/20/19 05:59 Last Admin: 05/10/19 05:11 Dose: 5 ml Documented by: Thiamine HCl (Vitamin B-1) 100 mg PO QAM [facility] Stop: 06/05/19 15:44 Last Admin: 05/10/19 07:57 Dose: Not Given Documented by: Vancomycin HCl (Vancomycin Hcl) 125 mg PO Q6 [facility] Stop: 05/16/19 05:59 Last Admin: 05/10/19 05:11 Dose: 125 mg Documented by: Vitamin B Complex (Vitamin B Complex) 1 tab PO QAM [facility] Stop: 06/05/19 15:44 Last Admin: 05/10/19 07:57 Dose: Not Given Documented by: Zolpidem Tartrate (Ambien) 10 mg PO HS [facility] Stop: 06/03/19 20:59 Last Admin: 05/09/19 21:58 Dose: 10 mg Documented by: (1) Acute pancreatitis Acute pancreatitis complication: unspecified Pancreatitis type: unspecified pancreatitis type Qualified Code(s): K85.90 - Acute pancreatitis without necrosis or infection, unspecified
[2019-05-10] MEDS ORDERED: ACETAMINOPHEN 1,000 MG/100 ML VIAL IV STA (10:31)
[2019-05-10] MEDS ORDERED: MIDAZOLAM HCL 1 MG/ML 2ML VIAL ONE (12:19)
[2019-05-10] MEDS ORDERED: fentaNYL citrate 100 MCG/2 ML VIAL ONE (12:19)
[2019-05-10] MEDS ORDERED: DEXAMETHASONE SOD INJ 4 MG/ML VIAL ONE (12:22)
[2019-05-10] MEDS ORDERED: ONDANSETRON INJ 2 MG/ML 2 ML VIAL ONE (12:22)
[2019-05-10] MEDS ORDERED: NEOSTIGMINE METHYLSULFATE 5 MG/5 ML SYR ONE (12:22)
[2019-05-10] MEDS ORDERED: GLYCOPYRROLATE 0.2 MG/ML VIAL ONE (12:22)
[2019-05-10] MEDS ORDERED: PROPOFOL IV EMULSION 10 MG/ML 20 ML VIAL IV ONE (12:22)
[2019-05-10] MEDS ORDERED: ROCURONIUM BROMIDE 10 MG/ML 5 ML VIAL ONE (12:22)
[2019-05-10] MEDS ORDERED: LIDOCAINE HCL 2% 2 ML VIAL/AMP(20MG/ML) INFIL ONE (12:22)
--- NOTE | 2019-05-10 12:43 | Anesthesiology Consultation ---
Date of Service May 10, 2019 Assessment & Plan (1) Encounter for pre-operative examination: History Surgery Operation Date: 05/10/19 12:20 Proposed Procedures p Laparoscopic Cholecystectomy with Cholangiogram - Tommy Dias MD Height/Weight Height: 5 ft 9 in Weight: 67.4 kg Allergies Allergy/AdvReac Type Severity Reaction Status Date / Time gluten Allergy Verified 05/06/19 16:17 caffeine AdvReac Verified 05/06/19 16:17 Medications Home Medications Medication Instructions Recorded Confirmed Last Taken buspirone 10 mg PO TID 05/04/19 05/04/19 Unknown clonazepam [Klonopin] 0.5 mg PO QID PRN 05/04/19 05/04/19 05/04/19 0.5mg dicyclomine 10 mg PO DAILY 05/04/19 05/04/19 Unknown famotidine [Pepcid] 40 mg PO DAILY 05/04/19 05/04/19 05/04/19 fluticasone propionate 2 spray INTRANASAL DAILY 05/04/19 05/04/19 Unknown gabapentin 300 mg PO TID 05/04/19 05/04/19 Unknown melatonin [Melatin] 3 mg PO HS 05/04/19 05/04/19 Unknown omeprazole 40 mg PO DAILY 05/04/19 05/04/19 05/04/19 zolpidem [Ambien] 10 mg PO HS 05/04/19 05/04/19 Unknown Active Medications Generic Name Dose Route Start Last Admin Trade Name Freq PRN Reason Stop Dose Admin Acetaminophen 650 mg 05/04/19 18:41 05/10/19 03:05 Tylenol PO 06/03/19 18:40 650 mg Q4H PRN Administration pain/fever Buspirone HCl 10 mg 05/04/19 21:00 05/10/19 07:56 Buspar PO 06/03/19 20:59 Not Given TID MADAI Clonazepam 0.5 mg 05/05/19 13:31 05/10/19 12:37 Klonopin PO 06/03/19 18:40 0.5 mg Q6H PRN Administration Anxiety Cyanocobalamin 1,000 mcg 05/08/19 09:00 05/10/19 07:57 Vitamin B-12 PO 06/07/19 08:59 Not Given QAM MADAI Dicyclomine HCl 10 mg 05/05/19 09:00 05/10/19 07:56 Bentyl PO 06/04/19 08:59 Not Given DAILY [facility] Ergocalciferol 50,000 units 05/06/19 15:45 05/06/19 17:06 Vitamin D2 PO 05/27/19 15:46 50,000 units Q7D MADAI Administration Famotidine 40 mg 05/05/19 09:00 05/10/19 07:57 Pepcid PO 06/04/19 08:59 Not Given DAILY [facility] Fluticasone Propionate 2 sprays 05/05/19 09:00 05/10/19 07:56 Flonase SHADY 06/04/19 08:59 Not Given DAILY [facility] Folic Acid 1 mg 05/06/19 15:45 05/10/19 07:57 Folvite PO 06/05/19 15:44 Not Given QAM [facility] Gabapentin 100 mg 05/07/19 21:00 05/10/19 07:57 Neurontin PO 06/06/19 20:59 Not Given BID [facility] Lactated Ringer's 1,000 mls @ 200 mls/hr 05/10/19 05:15 05/10/19 10:42 Lr IV 06/09/19 05:14 200 mls/hr .Q5H MADAI Administration Ioversol 100 ml 05/10/19 04:06 05/10/19 04:06 Optiray 320 100ml IV 05/14/19 04:05 93 ml ONCE PRN Administration Interaction Checking Magnesium Chloride 64 mg 05/06/19 09:15 05/10/19 07:57 Slow-Mag PO 06/05/19 09:14 Not Given BID [facility] Ondansetron HCl 4 mg 05/04/19 18:41 05/06/19 04:02 Zofran IV 06/03/19 18:40 4 mg Q6H PRN Administration Nausea Pantoprazole Sodium 40 mg 05/05/19 09:00 05/10/19 07:57 Protonix PO 06/04/19 08:59 Not Given DAILY [facility] Potassium Chloride 10 meq 05/06/19 13:00 05/10/19 12:19 Klor-Con M10 PO 06/05/19 12:59 Not Given QID [facility] Raspberry 5 ml 05/06/19 06:00 05/10/19 12:18 Raspberry PO 05/20/19 05:59 Not Given Q6 MADAI Thiamine HCl 100 mg 05/06/19 15:45 05/10/19 07:57 Vitamin B-1 PO 06/05/19 15:44 Not Given QAM MADAI Vancomycin HCl 125 mg 05/06/19 06:00 05/10/19 12:19 Vancomycin Hcl PO 05/16/19 05:59 Not Given Q6 MADAI Vitamin B Complex 1 tab 05/06/19 15:45 05/10/19 07:57 Vitamin B Complex PO 06/05/19 15:44 Not Given QAM MADAI Zolpidem Tartrate 10 mg 05/04/19 21:00 05/09/19 21:58 Ambien PO 06/03/19 20:59 10 mg HS MADAI Administration NPO Date Last Intake of Fluids: 05/09/19 Time Last Intake of Fluids: 21:00 Last Intake of Fluids Comment: sip of water with pill Date Last Intake of Solids: 05/09/19 Time Last Intake of Solids: 18:00 Past Medical History Medical History Anemia Depression (Chronic) GERD (gastroesophageal reflux disease) (Chronic) History of alcohol use Pancreatitis Post traumatic stress disorder (PTSD) (Chronic) Smoker Tobacco use disorder Past Family History Family History Other Diabetes Past Surgical History Surgical History S/P removal of ovarian cyst Social History Smoking Status: Current every day smoker tobacco type: cigarettes Smoking cigarettes per day: 20 Do You Dip or Chew Tobacco: No Hx Alcohol Use: No (quit apr 13.) Hx Substance Use: No substance use type: marijuana Physical Exam Vital Signs Last Vital Signs Temp 36.4 C L 05/10/19 12:38 Pulse 86 05/10/19 12:38 Resp 16 05/10/19 12:38 BP 131/89 05/10/19 12:38 Pulse Ox 97 05/10/19 12:38 Testing Laboratory Results 05/10/19 05:17 05/10/19 05:17 PT 10.7 Seconds (9.0-12.0) 05/10/19 05:17 INR 1.0 (0.9-1.1) 05/10/19 05:17 Hemoglobin A1c 4.4 % (4.5-5.6) L 05/05/19 06:30 Urine Color Yellow 05/04/19 14:40 Urine Appearance Clear (Clear) 05/04/19 14:40 Urine pH 8.0 (4.5-7.5) H 05/04/19 14:40 Ur Specific [place] 1.009 (1.000-1.030) 05/04/19 14:40 Urine Protein Negative (Negative) 05/04/19 14:40 Urine Glucose (UA) Negative (Negative) 05/04/19 14:40 Urine Ketones 1+ (Negative) H 05/04/19 14:40 Urine Nitrite Negative (Negative) 05/04/19 14:40 Ur Leukocyte Esterase 3+ (Negative) H 05/04/19 14:40 Urine WBC (Auto) 10-30 /hpf (0-5) H 05/04/19 14:40 Urine RBC (Auto) 0-4 /hpf (0-4) 05/04/19 14:40 U Hyaline Cast (Auto) 1-5 /lpf (0-5) 05/04/19 14:40 U Epithel Cells (Auto) >30 /lpf (0-5) H 05/04/19 14:40 Urine Bacteria (Auto) Negative (Negative) 05/04/19 14:40 05/05/19 19:35 Escherichia coli Shiga Toxins Test - Final Stool Stool Culture - Final No Salmonella isolated, No Shigella isolated, No Campylobacter jejuni isolated. 05/04/19 14:40 Urine Culture - Final Urine,Clean Catch Gardnerella-like bacilli 05/04/19 14:40 POC Ur Test NEG Cervical Spine Date: 05/06/19 [facility], [place] [phone] Magnetic Resonance Report Patient: Gian BOOKER Date: 05/05/19 MR#: [id number] 10 [facility] Acct ID:[id number]: Date: 1970City Zip: [place] [address] Age: 48Location: 2N Sex: F Room/Bed: [facility] Att Phy: Donal Miller, MDDiagnosis: BLE WEAKNESS,PANCREATITIS Sarah Beth Phy: Kerry Moya, MDService Date: 05/06/19 Fam Phy:Interpreting Phy: Jarod Butterfield Admit Phy: Arlene Beltran MD Ordering Phy: Donal Miller MD cc: ~ MR cervical spine wo con HISTORY: 48 years-old Female neck pain, weakness of upper and lower extremities subacute neck pain with upper and lower extremity weakness COMPARISON: MRI thoracic and lumbar spine studies of same day TECHNIQUE: Multiplanar multisequence MRI of the cervical spine was obtained without the use of IV contrast. FINDINGS: Medical Technicians localizer images demonstrate no gross extracranial abnormality. Convex right curvature of the mid cervical spine with partially imaged convex left cu rvature of the thoracic spine. The imaged posterior fossa structures appear unremarkable. No cerebellar tonsillar herniation. No acute fracture or subluxation of the cervical spine. Signal within the brainstem and cervical spinal cord appear normal. No cord lesions identified. Modic type II endplate degeneration noted at C5-C6 and C6-C7. C2-C3: Mild facet arthrosis. No central canal or foraminal narrowing. C3-C4: Mild facet arthrosis. No central canal or foraminal narrowing. C4-C5: Mild uncovertebral spurring with mild facet arthrosis and tiny posterior annular disc bulge. No central canal or foraminal narrowing. C5-C6: Mild to moderate disc space narrowing with spondylitic spurring, cir cumferential annular disc bulge and mild facet arthrosis. Flattening of the ventral thecal sac with mild narrowing of the left lateral recess. Moderate left and mild right foraminal narrowing. C6-C7: Mild to moderate disc space narrowing with spondylitic spurring, circumferential annular disc bulge and mild facet arthrosis with central disc osteophyte complex. Flattening of the ventral thecal sac with mild central canal narrowing. Mild narrowing of the lateral recesses. Mild right and mild-to-m oderate left foraminal narrowing. C7-T1: Mild facet arthrosis with uncovertebral spurring. Central disc osteophyte complex flattens the ventral thecal sac. No central canal or right foraminal narrowing. Moderate left foraminal stenosis. IMPRESSION: 1. Cervical dextroscoliosis and thoracic levoscoliosis. 2. Discogenic degenerative changes and facet arthrosis as above, most pronounced at C5-C6 and C6-C7. 3. No high-grade central canal or foraminal narrowing. 4. Normal signal of the cervical spinal cord. ACT 112: Negative or not required by law. The above report was generated using voice recognition software. It may contain grammatical, syntax or spelling errors. Electronically signed by: Trav Butterfield M.D. 05/06/2019 12:03 PM Dictated: 05/06/19 1154 Transcribed: 05/06/19 1154
[2019-05-10] MEDS ORDERED: ONDANSETRON INJ 2 MG/ML 2 ML VIAL IV PRN (12:44)
[2019-05-10] MEDS ORDERED: ATROPINE SULFATE 0.1 MG/ML 10ML SYR IV PRN (12:44)
[2019-05-10] MEDS ORDERED: ePHEDrine sulfate 50 MG/ML AMP IV PRN (12:44)
[2019-05-10] MEDS ORDERED: HYDROmorphone INJ 1 MG/ML SYRINGE IV PRN (12:44)
[2019-05-10] MEDS ORDERED: fentaNYL citrate 100 MCG/2 ML VIAL IV PRN (12:44)
--- NOTE | 2019-05-10 12:57 | History & Physical Bridge Note ---
Date of Service May 10, 2019 History & Physical Bridge Note I have examined the patient, reviewed the History & Physical and in the interval since the performance of the History & Physical I have noted the following changes of clinical significance: no changes noted all questions answered permit signed Supervising Physician Co-Signing Physician Notes A 48 year old woman with alcohol use disorder and acute pancreatitis admitted fo r paresthesias and numbness in hands and feet. Patient notes poor PO intake and recently stopped alcohol intake. Multiple metabollic abnormalities noted on serum labs including hypokalemia, hypomagnesia, folate deficiecy, and low B12. Patient also noted she does not eat meat and is a vegetarian. On examine no muscle weakness noted. She is able to stand from bed with arms crossed. Gait is wide based. Difficulty with standing with feat together and eyes closed. Position sense is intact. Knee jerks are 2+ with jendrassik maneuver. Jara negative. No clonus. 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 Recommend starting B-complex vitamin as well as thiamine tablet daily. Would recommend nutrition consultation. PT for discharge recommendations. Recommend outpatient EMG. Please call me with any further questions or concerns.
[2019-05-10] MEDS ORDERED: BUPIVACAINE 0.5 % 5 MG/1 ML MPF 30ML VIAL ONE (12:58)
[2019-05-10] MEDS ORDERED: LIDOCAINE/EPINEPHRINE 1% 20 ML VIAL ONE (13:30)
[2019-05-10] MEDS ORDERED: CONRAY 60% 50 ML VIAL ONE (13:30)
--- NOTE | 2019-05-10 14:09 | Post Operative Brief Note ---
PG Immediate Post Op with CF Date of Surgery May 10, 2019 Pre & Post Diagnosis Operation Date: 05/10/19 12:20 Pre-Op Diagnosis: biliary sludge Post-Op Diagnosis: biliary sludge I identified the patient and participated in the time-out.: Yes Procedure Operation Date: 05/10/19 12:20 Actual Procedures p Laparoscopic Cholecystectomy with Cholangiogram(Not Applicable) - Tommy Dias MD Surgeon Tommy Dias MD Heel Lining Paster b tigre hines Estimated Blood Loss 5 Findings Consistent with Post-Op Diagnosis Specimens Specimen Description: a. Gallbladder
--- NOTE | 2019-05-10 14:28 | Operative Report ---
PG Post Operative Report Pre & Post Diagnosis Operation Date: 05/10/19 12:20 Pre-Op Diagnosis: biliary sludge Post-Op Diagnosis: biliary sludge I identified the patient and participated in the time-out.: Yes Procedure Operation Date: 05/10/19 12:20 Actual Procedures p Laparoscopic Cholecystectomy with Cholangiogram(Not Applicable) - Tommy Dias MD The patient was brought into the operating theater general trach anesthesia abdomen was prepped Betadine solution properly draped timeout was had patient was identified small incision was made supraumbilically between the umbilical crater that had a small hernia and some punctate scar tissue from previous jewelry above the umbilicus Veress needle CO2 followed by 5 mm trocar point of interest bacteroids identified direct visualization a 5 mm epigastric 2 5 mm subcostal ports were placed with preemptive local analgesic gallbladder was identified placed under traction had some adhesions of the gallbladder which were just taken down mostly in midportion and distally by blunt dissection were able to dissect out very easily did triangle ROCCO the lymph node was mobilized easily and a window was created between the cystic duct and cystic artery small clip was placed in the cystic duct small opening cystic duct was made #4 4 urethral catheter transversing abdominal wall a 14 Angiocath was positioned in the cystic duct after we made another smaller opening distal to the initial 1 since we were unable to feed it in the cystic duct serial x-rays were taken which showed free flow into the duodenum look like distally in the common bile duct there was some narrowing of the common bile duct but they may be associated with the patient recent pancreatitis there was not any definite filling defects. This point the Cholangiocath was then removed the cystic duct was doubly clipped and divided we choked up on a little bit since we initial Cholangiocath showed that it be a little bit longer normal this is cystic artery double clipped divided proximally one distally gallbladder smooth antegrade fashion use electrocautery we this much is posterior peritoneum was possible gallbladder was then taken out intact through the epigastric port subhepatic suprahepatic area was checked hemostasis appear satisfactory we placed the camera right upper quadrant port and visualize the umbilical area there was no adhesions where we initially had gone out percutaneously but the patient did have some adhesions from previous surgery which were just omental adhesions to the anterior abdominal wall nodule trocar taken out on direct visualization the last umbilical trocar since the patient had a small hernia probably less than a centimeter in the umbilical opening and we opened another area above it I elected to close this 5 mm trocar with a [id number] Vicryl suture dressing was applied after we closed the Monocryl subcuticular as a Steri-Strips the procedure was tolerated well by the patient estimated blood loss 5 cc addendjoaquim hines was present throughout the procedure and helped the retraction exposure and wound closure Surgeon Tommy Dias MD Business Initiatives Manager alec hines Estimated Blood Loss 5 Findings Consistent with Post-Op Diagnosis Specimens gallbladder and contents Description of Procedure merda I attest to the content of the Intraoperative Record and any orders documented therein. Any exceptions are noted below. Supervising Physician Co-Signing Physician Notes A 48 year old woman with alcohol use disorder and acute pancreatitis admitted for paresthesias and numbness in hands and feet. Patient notes poor PO intake and recently stopped alcohol intake. Multiple metabollic abnormalities noted on serum labs including hypokalemia, hypomagnesia, folate deficiecy, and low B12. Patient also noted she does not eat meat and is a vegetarian. On examine no muscle weakness noted. She is able to stand from bed with arms crossed. Gait is wide based. Difficulty with standing with feat together and eyes closed. Position sense is intact. Knee jerks are 2+ with jendrassik maneuver. Jara negative. No clonus. 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 Recommend starting B-complex vitamin as well as thiamine tablet daily. Would recommend nutrition consultation. PT for discharge recommendations. Recommend outpatient EMG. Please call me with any further questions or concerns.
--- NOTE | 2019-05-10 14:36 | Fluoroscopy Report ---
[place] cholangiogram OR CLINICAL HISTORY: LAP LAURA COMPARISON STUDY: FLUOROSCOPY TIME: 6 seconds. NUMBER OF FLUOROSCOPIC IMAGES: 4 FINDINGS: 4 images from an intraoperative cholangiogram are provided for interpretation. The cystic d uct remnant was cannulated and contrast was instilled. No common bile duct filling defects are visual ized. There is free flow into the duodenum. There is mild short segment narrowing of distal common bi le duct, possibly secondary to spasm. IMPRESSION: 1. No retained calculi identified. 2. Nonspecific short segment narrowing of the distal common bile duct. ACT 112: Negative or not required by law. Electronically signed by: Rashaun Bazan M.D. 05/10/2019 2:34 PM
--- NOTE | 2019-05-10 14:51 | Anesthesiology Progress Note ---
Date of Service May 10, 2019 Anesthesia Post Procedure Vital Signs Vital Signs: Temp Pulse Pulse Resp BP BP Pulse Ox 05/10/19 14:40 83 15 127/87 100 05/10/19 14:30 89 17 128/91 99 05/10/19 14:21 36.8 C 92 H 24 129/99 99 05/10/19 12:38 36.4 C L 86 16 131/89 97 05/10/19 07:15 36.4 C L 74 16 110/72 99 05/09/19 23:00 36.5 C 84 20 120/86 99 05/09/19 15:30 36.5 C 100 H 16 114/93 99 Pain Intensity Bilateral Leg: Pain Intensity: 8 Abdomen: Pain Intensity: 4 Transfer of Care Handoff Completed per policy Notes Mental Status: alert / awake / arousable and participated in evaluation Patient Amnestic to Procedure: Yes Nausea / Vomiting: adequately controlled Pain: adequately controlled Airway Patency, RR, SpO2: stable & adequate BP & HR: stable & adequate Hydration State: stable & adequate Anesthetic Complications: no major complications apparent and Pt Satisfied with anesthetic care
[2019-05-10] MEDS: MoRPHine SULFATE 4 MG/ML 1 ML CARP\\VIAL IV PRN ×2 (15:40→21:18)
[2019-05-10 16:14] LABS: Vitamin B6 <2.0 ng/mL (2.1-21.7)
[2019-05-10] MEDS: OXYCODONE/ACETAMINOPHEN 5mg/325mg TAB PO PRN (18:51)
[2019-05-10] MEDS: ZOLPIDEM TARTRATE 10 MG TAB PO SCH (20:59)
[2019-05-11] MEDS: OXYCODONE/ACETAMINOPHEN 5mg/325mg TAB PO PRN ×4 (00:21→17:25)
[2019-05-11] MEDS: RASPBERRY SYRUP 5 ML UDP PO SCH ×3 (00:23→12:08)
[2019-05-11] MEDS: VANCOMYCIN HCL 125 MG/2.5ML SOLN PO SCH ×3 (00:23→12:08)
[2019-05-11] MEDS ORDERED: SIMETHICONE 80 MG CHEW PO ONE (01:32)
[2019-05-11] MEDS: LACTATED RINGER'S 1,000 ML IV SCH (02:46)
[2019-05-11] MEDS: MoRPHine SULFATE 4 MG/ML 1 ML CARP\\VIAL IV PRN (03:21)
[2019-05-11] MEDS: clonazePAM 0.5 MG TAB PO PRN ×2 (05:53→12:08)
[2019-05-11 06:09] LABS: Hematocrit (blood only) 33.4 % (37-47); Hemoglobin 11.3 g/dL (12.0-16.0); Mean Corpuscular Hemoglobin 38.2 pg (25-34); Mean Corpuscular Hgb Conc 33.8 g/dL (32-36); Mean Corpuscular Volume 112.8 fL (80-100); Mean Platelet Volume 11.2 fL (7.4-10.4); Platelet Count 468 K/uL (130-400); RDW Coefficient of Variation 14.3 % (11.5-14.5); RDW Standard Deviation 58.9 fL (36.4-46.3); Red Blood Count 2.96 M/uL (4.2-5.4); White Blood Count 8.51 K/uL (4.8-10.8)
[2019-05-11 06:44] LABS: Calcium 9.1 mg/dl (8.5-10.1); Creatinine Clr Calc Pharmacy 146.9 ml/min; Est GFR (African American) 134.5; Est GFR (Non-African American) 116.1; Magnesium 1.9 mg/dl (1.8-2.4); Potassium 3.8 mmol/L (3.5-5.1)
--- NOTE | 2019-05-11 07:37 | Anesthesiology Progress Note ---
Date of Service May 11, 2019 Anesthesia Post Procedure Vital Signs Vital Signs: Temp Pulse Pulse Resp BP BP Pulse Ox 05/11/19 07:23 36.3 C L 99 H 16 113/81 98 05/11/19 03:16 36.9 C 100 H 20 132/89 98 05/10/19 22:38 36.5 C 101 H 18 130/93 97 05/10/19 17:16 36.7 C 88 18 140/96 99 05/10/19 16:22 36.2 C L 82 18 132/89 99 05/10/19 15:46 36.3 C L 83 18 111/77 05/10/19 15:23 36.3 C L 77 20 123/81 100 05/10/19 15:04 37.0 C 80 16 121/77 98 05/10/19 14:50 37.0 C 95 H 21 128/94 95 05/10/19 14:40 83 15 127/87 100 05/10/19 14:30 89 17 128/91 99 05/10/19 14:21 36.8 C 92 H 24 129/99 99 05/10/19 12:38 36.4 C L 86 16 131/89 97 Pain Intensity Bilateral Leg: Pain Intensity: 8 Abdomen: Pain Intensity: 8 Notes Mental Status: alert / awake / arousable and participated in evaluation Patient Amnestic to Procedure: Yes Nausea / Vomiting: adequately controlled Pain: adequately controlled Airway Patency, RR, SpO2: stable & adequate BP & HR: stable & adequate Hydration State: stable & adequate Anesthetic Complications: Pt Satisfied with anesthetic care
[2019-05-11] MEDS: THIAMINE HCL 100 MG TAB PO SCH (08:12)
[2019-05-11] MEDS: FAMOTIDINE 40 MG TABLET PO SCH (08:12)
[2019-05-11] MEDS: GABAPENTIN 100 MG CAP PO SCH (08:13)
[2019-05-11] MEDS: VITAMIN B COMPLEX TAB PO SCH (08:13)
[2019-05-11] MEDS: FOLIC ACID 1 MG TAB PO SCH (08:13)
[2019-05-11] MEDS: FLUTICASONE PROPIONATE NA SPR 16 GM BTL NAE SCH (08:14)
[2019-05-11] MEDS: PANTOprazole 40 MG TAB PO SCH (08:14)
[2019-05-11] MEDS: POTASSIUM CHLORIDE 10 MEQ TABCR PO SCH ×3 (08:14→17:23)
[2019-05-11] MEDS: DICYCLOMINE HCL 10 MG CAP PO SCH (08:14)
[2019-05-11] MEDS: CYANOCOBALAMIN 500 MCG TABLET (VITAMIN B-12) PO SCH (08:15)
[2019-05-11] MEDS: MAGNESIUM CHLORIDE 64MG DELAYED REL TAB PO SCH (08:15)
--- NOTE | 2019-05-11 08:24 | Surgery Progress Note ---
Date of Service May 11, 2019 Assessment & Plan (1) Biliary sludge determined by ultrasound: Patient is first postoperative day status post lap mauro (path pending) cholangiogram (normal) At this point the patient can be discharged from our point of view instructions have given no driving for 3 days do not lift anything more than 10 pounds for approximately a week to call our office for an appointment and follow-up in approximately 1 week PRN Operative findings were discussed with the patient Present on Admission?: Yes Subjective Overall feels fine some abdominal discomfort no nausea gas pain is pretty much resolved from the procedure (laparoscopic cholecystectomy cholangiogram) Physical Exam Physical Exam: She is alert coherent was sleeping comfortably when I first weekend but woke up with verbal stimuli No abdominal discomfort Results & Data Vital Signs (Past 12 Hours) Vital Signs Temp Pulse Resp BP BP Pulse Ox 05/11/19 07:23 36.3 C L 99 H 16 113/81 98 05/11/19 03:16 36.9 C 100 H 20 132/89 98 05/10/19 22:38 36.5 C 101 H 18 130/93 97 PG Care Time/CCT Total # of Minutes Spent Total Time Spent with Patient: Total time spent is greater than 50% in coordination of care (as documented) at patient's floor/unit and/or counseling patient: Coding Level of Care Code None Diagnoses Biliary sludge determined by ultrasound K83.8
--- NOTE | 2019-05-11 16:16 | Discharge Summary ---
Date of Service May 11, 2019 Admission HPI Per Admitting Provider This is a 48-year-old female with a PMH of GERD, depression, anxiety, PTSD, tobacco use disorder, history of alcohol use disorder, marijuana use and other medical problems listed below who presents with ongoing bilateral lower extremity numbness. States that she first noted some numbness and tingling in her right toes back during Mansi time that is progressed up her legs to waist. States that she feels weak but has been able to ambulate with some assistance. Feels like her lower limbs are heavy with intermittent shooting pain. Has been undergoing outpatient work-up for peripheral neuropathy and is already had an EMG but has not followed up with neurology as of yet, per chart review. Will need to clarify further with patient. TSH within normal range at 2.43 on 04/18/19 and B12 level was within normal range at 317 on 05/02/19. Endorses poor nutrition and eats a vegetarian and gluten free diet. Also presenting with mild left sided abdominal pain that has persisted since the beginning of the week, when patient was admitted to [facility] 04/29-05/02 for acute pancreatitis. Denies associated nausea or vomiting. History of significant alcohol use but states that last drink was at the beginning of April. CT abd/pelvis from 04/29/19 with findings consistent with acute interstitial pancreatitis. No pancreatic necrosis or pseudocyst. No calcified gallstone, biliary duct dilatation or CT finding to suggest acute cholecystitis. RUQ ultrasound with heterogeneous pancreatic echotexture with indistinctness of the focal areas of pancreatic borders suggesting acute pancreatitis. Nonspecific small amount of pericholecystic fluid with no evidence for gallstone/sludge. Recommendation was made for alcohol and marijuana cessation, but patient still using daily marijuana. Plan for EUS evaluation in 4 to 6 weeks. Smokes 1 pack/day for the past 20 years. Additional symptoms include intermittent flashes of light that is been going on for months. During [facility] hospitalization, outpatient evaluation with ophthalmology was recommended and patient has appointment scheduled for May 08. Also endorsing numbness of lips and chin since the beginning of April. Denies any difficulty speaking or swallowing. Denies any lightheadedness, diplopia, fever, chills, chest pain, palpitations, shortness of breath, nausea, vomiting, dysuria, diarrhea or constipation. Discharge Data Allergies Allergy/AdvReac Type Severity Reaction Status Date / Time gluten Allergy Verified 05/06/19 16:17 caffeine AdvReac Verified 05/06/19 16:17 Consultations 05/04/19 14:46 ED Decision to Admit Stat 05/07/19 07:11 Consult Neurology Routine 05/09/19 07:00 Consult General Surgery Routine Procedures Performed Operation Date: 05/10/19 12:20 Actual Procedures p Laparoscopic Cholecystectomy with Cholangiogram(Not Applicable) - Tommy Dias MD Ordered Studies 05/04/19 15:56 US liver Routine 05/06/19 09:11 MR cervical spine wo con Routine MR thoracic spine wo con Routine 05/06/19 09:12 MR lumbar spine wo con Routine 05/10/19 03:58 CT abd pelvis IV con only Urgent 05/10/19 08:40 FL cholangiogram OR Routine Discharge Plan Discharge Items Patient Disposition: Home - Self-Care Reason For Visit: BLE WEAKNESS,PANCREATITIS Discharge Diagnosis: S/p Laparoscopic cholecystectomy, Acute pancreatitis, Hypokalemia, Hypomagnesemia, Folic acid deficiency, Vit. D deficiency Activity: Resume your previous activity Lifting: No more than 10 pounds Bathing Comment: ok to shower Driving/Machine Use: Resume 3 days after discharge Non-emergency contact: Surgeon Call non-emergency contact if: your pain is not controlled, your pain is unusual for you, you have a fever, your temperature is above 101.5 and your wound has increased redness Follow-up/Referrals: Tommy Dias MD [Surgeon] - (Call to make an appt in 1 week) Kerry Moya MD [Primary Care Provider] - Diet: Regular Addtl Attending Provider Instructions: Follow up with your primary care provider within 1 week. You will need to follow up with general surgery in about 1 week. Per their instructions - no driving for 3 days, do not lift anything more than 10 pounds for approximately a week. For more severe pain you can take oxycodone as prescribed. You may follow up with neurology as well, discuss this with your primary care doctor. Follow dietary instructions provided by hearing aid specialist here. Continue to take supplements. Bring all your supplements and prescription medications to your appointment with primary care doctor for review. Avoid alcohol consumption. Pending Studies at Discharge: No Stand-Alone Forms: My [facility], Smoking Cessation Medications and DC Order Prescriptions: New oxycodone-acetaminophen [Percocet] 5-325 mg tablet 1 - 2 tab PO Q4H PRN (Reason: pain, initial therapy, max 8 daily) Qty: 12 RF: 0 gabapentin 100 mg Capsule 100 mg PO BID 10 Days Qty: 20 RF: 0 magnesium chloride [Mag 64] 64 mg Tablet,Delayed Release (Dr/Ec) 64 mg PO BID 10 Days Qty: 20 RF: 0 potassium chloride [Klor-Con M10] 10 mEq Tablet,Er Particles/Crystals 10 meq PO QID 10 Days Qty: 40 RF: 0 cyanocobalamin (vitamin B-12) 500 mcg Tablet 1,000 mcg PO QAM 30 Days Qty: 60 RF: 0 ergocalciferol (vitamin D2) 1,250 mcg (50,000 unit) Capsule 50,000 unit PO Q7D Qty: 4 RF: 0 folic acid 1 mg Tablet 1 mg PO QAM 30 Days Qty: 30 RF: 0 thiamine HCl (vitamin B1) [Vitamin B-1] 100 mg Tablet 100 mg PO QAM 30 Days Qty: 30 RF: 0 polyethylene glycol 3350 [Miralax] 17 gram Powder In Packet 17 g PO DAILY PRN (Reason: constipation) 10 Days Qty: 10 RF: 0 Continued famotidine [Pepcid] 40 mg tablet 40 mg PO DAILY RF: 0 clonazepam [Klonopin] 0.5 mg tablet 0.5 mg PO QID PRN (Reason: Anxiety) RF: 0 melatonin [Melatin] 3 mg tablet 3 mg PO HS RF: 0 omeprazole 40 mg capsule,delayed release(DR/EC) 40 mg PO DAILY RF: 0 buspirone 10 mg tablet 10 mg PO TID RF: 0 zolpidem [Ambien] 10 mg tablet 10 mg PO HS RF: 0 fluticasone propionate 50 mcg/actuation spray,suspension 2 spray INTRANASAL DAILY RF: 0 dicyclomine 10 mg capsule 10 mg PO DAILY RF: 0 Discontinued gabapentin 300 mg capsule 300 mg PO TID RF: 0 Admission Data Admit Date/Time: 05/05/19 18:51 Attending Provider: Jt Carbone Admit Provider: Arlene Beltran I. Primary Care Provider: Kerry Moya Other Providers: [facility] ; Donal Miller ; Arlene Beltran I. ; Marcelo Lehman ; Max Nicholson
== END 2019-05-11 18:00 | disposition home or self-care (01) | DRG 418 ==
LOC: ED 12:04 → 2N 12:04 → SUATTDRO 16:57 → 2N 18:14 → SUATTDRO 05-05 18:51 → 2N 05-05 21:59 → 4W 05-06 21:00